=== PATIENT | female | born 1995 | race Caucasian/White ===

== ENCOUNTER 2016-12-25 19:04 | Emergency (ER) | payer OTHER, MEDICAID ==
[2016-12-25] MEDS ORDERED: ONDANSETRON 4 MG TAB.RAPDIS PO ONE (19:09)
--- NOTE | 2016-12-25 19:09 | ER Document Report ---
ED Medical Screen (RME) - General Stated Complaint: BODY ACHES HEADACHE Mode of Arrival: Ambulatory Information source: Patient Notes: Patient presents to the emergency department with body aches and vomiting since Tuesday. Reports vomiting after cough. +FLU vaccine. Reports low grade fever. I have greeted and performed a rapid initial assessment of this patient. A comprehensive ED assessment and evaluation of the patient, analysis of test results and completion of the medical decision making process will be conducted by additional ED providers. TRAVEL OUTSIDE OF THE [place] IN LAST 30 DAYS: No - Related Data Allergies/Adverse Reactions: promethazine HCl [From Phenergan] Allergy (Intermediate, Verified 09/15/15 09:46 ) Facial swelling Past Medical History Psychiatric Medical History: Reports: Hx Attention Deficit Hyperactivity Disorder, Hx Depression Past Surgical History: Reports: Hx Section - Immunizations Hx Diphtheria, Pertussis, Tetanus Vaccination: Yes
[2016-12-25 19:49] LABS: HEMATOCRIT 34.2 % (36.0-47.0); HGB HCT DIFFERENCE -1.2; MEAN CORPUSCULAR HEMOGLOBIN 22.8 pg (27.0-33.4); MEAN CORPUSCULAR VOLUME 71 fl (80-97); RED BLOOD COUNT 4.81 10^6/uL (3.72-5.28); RED CELL DISTRIBUTION WIDTH 18.3 % (11.5-14.0); WHITE BLOOD COUNT 6.2 10^3/uL (4.0-10.5)
[2016-12-25 19:53] LABS: ALANINE AMINOTRANSFERASE 520 U/L (9-52); ALBUMIN 3.7 g/dL (3.5-5.0); ALKALINE PHOSPHATASE 243 U/L (38-126); ANION GAP 8 (5-19); ASPARTATE AMINO TRANSFERASE 343 U/L (14-36); BILIRUBIN,TOTAL 0.7 mg/dL (0.2-1.3); BLOOD UREA NITROGEN 6 mg/dL (7-20); CALCIUM 9.1 mg/dL (8.4-10.2); CARBON DIOXIDE 30 mmol/L (22-30); CHLORIDE 100 mmol/L (98-107); CREATININE RESULT 0.71 mg/dL (0.52-1.25); GLUCOSE 106 mg/dL (75-110); POTASSIUM 3.9 mmol/L (3.6-5.0); SODIUM 138.4 mmol/L (137-145); TOTAL PROTEIN 6.6 g/dL (6.3-8.2)
[2016-12-25 20:02] LABS: BASOPHILS % (MANUAL) 0 % (0-2); EOSINOPHILS % (MANUAL) 2 % (0-6); LYMPHOCYTES % (MANUAL) 55 % (13-45); TOTAL CELLS COUNTED 100
[2016-12-25 20:07] LABS: ANISOCYTOSIS 2+; HYPOCHROMASIA SLIGHT; MICROCYTOSIS 1+; POLYCHROMASIA SLIGHT; TOXIC GRANULATION SLIGHT; TOXIC VACUOLATION PRESENT
[2016-12-25 20:08] LABS: OVALOCYTES 1+; POIKILOCYTOSIS 1+
[2016-12-25 20:38] LABS: APPEARANCE,URINE SLIGHTLY-CLOUDY; BILIRUBIN,URINE NEGATIVE (NEGATIVE); GLUCOSE, URINE NEGATIVE (NEGATIVE); KETONES,URINE NEGATIVE (NEGATIVE); LEUKOCYTE ESTERASE,URINE NEGATIVE (NEGATIVE); NITRITE,URINE NEGATIVE (NEGATIVE); PROTEIN,URINE NEGATIVE (NEGATIVE); URINE SPECIFIC GRAVITY 1.014
[2016-12-25] MEDS ORDERED: KETOROLAC TROMETHAMINE 10 MG TABLET PO ONE (20:54)
[2016-12-25] MEDS ORDERED: KETOROLAC TROMETHAMINE 10 MG TABLET ONE (21:36)
[2016-12-25 22:15] LABS: ALBUMIN 3.9 g/dL (3.5-5.0); BILIRUBIN,TOTAL 0.9 mg/dL (0.2-1.3); TOTAL PROTEIN 6.9 g/dL (6.3-8.2)
--- NOTE | 2016-12-25 22:26 | ER Document Report ---
ED General - General Chief Complaint: Flu Symptoms Stated Complaint: BODY ACHES HEADACHE Mode of Arrival: Ambulatory Information source: Patient Notes: 21-year-old female presents with complaints of generalized body aches nausea headaches. Patient notes symptoms have been ongoing for a week. Patient has had nonproductive cough. Denies any current fevers but notes feeling hot and cold intermittently Patient denies any abdominal pain, denies any Tylenol use, denies any alcohol abuse and any dirty sticks TRAVEL OUTSIDE OF THE [place] IN LAST 30 DAYS: No - HPI Onset: Last week Onset/Duration: Persistent Quality of pain: Achy Severity: Mild Pain Level: 1 Associated symptoms: Fever, Headache, Nausea Exacerbated by: Denies Relieved by: Denies Similar symptoms previously: No Recently seen / treated by doctor: No - Related Data Allergies/Adverse Reactions: promethazine HCl [From Phenergan] Allergy (Intermediate, Verified 12/25/16 19:08 ) Facial swelling Past Medical History - General Information source: Patient - Social History Smoking Status: Never Smoker Cigarette use (# per day): No Chew tobacco use (# tins/day): No Smoking Education Provided: No Frequency of alcohol use: None Drug Abuse: None Family History: Reviewed & Not Pertinent, Other - Mother: [place] Patient has suicidal ideation: No Patient has homicidal ideation: No Renal/ Medical History: Denies: Hx Peritoneal Dialysis Psychiatric Medical History: Reports: Hx Attention Deficit Hyperactivity Disorder, Hx Depression Past Surgical History: Reports: Hx Section - Immunizations Hx Diphtheria, Pertussis, Tetanus Vaccination: Yes Review of Systems - Review of Systems Notes: REVIEW OF SYSTEMS: CONSTITUTIONAL : Admits intermittent fever EENT: Denies eye, ear, throat, or mouth pain or symptoms. Denies nasal or sinus congestion or discharge. Denies throat, tongue, or mouth swelling or difficulty swallowing. CARDIOVASCULAR: Denies chest pain. Denies palpitations or racing or irregular heart beat. Denies ankle edema. RESPIRATORY: Denies cough, cold, or chest congestion. Denies shortness of breath, difficulty breathing, or wheezing. GASTROINTESTINAL: Admits to nausea GENITOURINARY: Denies difficulty urinating, painful urination, burning, frequency, blood in urine, or discharge. FEMALE GENITOURINARY: Denies vaginal bleeding, heavy or abnormal periods, irregular periods. Denies vaginal discharge or odor. MUSCULOSKELETAL: Denies back or neck pain or stiffness. Denies joint pain or swelling. SKIN: Denies rash, lesions or sores. HEMATOLOGIC : Denies easy bruising or bleeding. LYMPHATIC: Denies swollen, enlarged glands. NEUROLOGICAL: Admits to headache PSYCHIATRIC: Denies anxiety or stress. Denies depression, suicidal ideation, or homicidal ideation. ALL OTHER SYSTEMS REVIEWED AND NEGATIVE. Dictation was performed using [employer] voice recognition software PHYSICAL EXAMINATION: GENERAL: Well-appearing, well-nourished and in no acute distress. HEAD: Atraumatic, normocephalic. EYES: Pupils equal round and reactive to light, extraocular movements intact, conjunctiva are normal. ENT: Nares patent, oropharynx clear without exudates. Moist mucous membranes. NECK: Normal range of motion, supple without lymphadenopathy LUNGS: Breath sounds clear to auscultation bilaterally and equal. No wheezes rales or rhonchi. HEART: Regular rate and rhythm without murmurs ABDOMEN: Soft, nontender, nondistended abdomen. No guarding, no rebound. No masses appreciated. Female : deferred Musculoskeletal: Normal range of motion, no pitting or edema. No cyanosis. NEUROLOGICAL: Cranial nerves grossly intact. Normal speech, normal gait. Normal sensory, motor exams PSYCH: Normal mood, normal affect. SKIN: Warm, Dry, normal turgor, no rashes or lesions noted. Physical Exam - Vital signs Vitals: Temp Pulse Resp BP Pulse Ox 99.8 F 118 H 20 123/81 98 12/25/16 19:08 12/25/16 19:08 12/25/16 19:08 12/25/16 19:08 12/25/16 19:08 Course - Re-evaluation Re-evalutation: 12/25/16 22:22 Physical examination noted no significant abnormality, lab work is showing quite elevated liver enzymes, hepatic panel was ordered. Patient will be given GI follow-up and is otherwise stable. Patient's headache is resolved with Toradol she's been instructed not to drink or take, Patient's medication list I reviewed and do not see any specific causes of liver injury ultrasound noted no stones and patient has no abdominal pain After performing a Medical Screening Examination, I estimate there is LOW risk for ACUTE APPENDICITIS, BOWEL OBSTRUCTION, ACUTE CHOLECYSTITIS, PERFORATED DIVERTICULITIS, INCARCERATED HERNIA, PANCREATITIS, PELVIC INFLAMMATORY DISEASE, PERFORATED ULCER, ECTOPIC , or TUBO-OVARIAN ABSCESS, thus I consider the discharge disposition reasonable. Also, there is no evidence or peritonitis , sepsis, or toxicity. The patient and I have discussed the diagnosis and risks , and we agree with discharging home with close follow-up with the understanding that symptoms and presentations can change. We also discussed returning to the Emergency Department immediately if new or worsening symptoms occur. We have discussed the symptoms which are most concerning (e.g., bloody stool, fever, changing or worsening pain, vomiting) that necessitate immediate return. - Vital Signs Vital signs: Temp Pulse Resp BP Pulse Ox 99.8 F 118 H 20 123/81 98 12/25/16 19:08 12/25/16 19:08 12/25/16 19:08 12/25/16 19:08 12/25/16 19:08 - Laboratory Result Diagrams: 12/25/16 19:20 12/25/16 19:20 Laboratory results interpreted by me: 12/25/16 12/25/16 12/25/16 19:20 19:20 20:26 Hgb 11.0 L Hct 34.2 L MCV 71 L MCH 22.8 L RDW 18.3 H Plt Count 132 L Seg Neuts % (Manual) 24 L Lymphocytes % (Manual) 55 H Abs Neuts (Manual) 1.5 L BUN 6 L AST 343 H ALT 520 H Alkaline Phosphatase 243 H Urine Urobilinogen 4.0 H 12/25/16 21:35 Hgb Hct MCV MCH RDW Plt Count Seg Neuts % (Manual) Lymphocytes % (Manual) Abs Neuts (Manual) BUN AST 354 H ALT 546 H Alkaline Phosphatase 254 H Urine Urobilinogen - Diagnostic Test Radiology reviewed: Image reviewed, Reports reviewed Discharge - Discharge Clinical Impression: Elevated liver enzymes Headache Qualifiers: Headache type: unspecified Headache chronicity pattern: acute headache Intractability: not intractable Qualified Code(s): R51 - Headache Condition: Stable Disposition: HOME, SELF-CARE Instructions: Liver Function Abnormality ([facility]) Referrals: FILI RANDHAWA MD [ACTIVE STAFF] - Follow up tomorrow
[2016-12-25 22:56] VITALS: BP 107/66
== END 2016-12-25 22:43 | disposition home or self-care (01) ==
LOC: ER 19:04
DX: R74.8 Abnormal levels of other serum enzymes (principal); R51 Headache; M79.1 Myalgia; R11.0 Nausea
CPT/HCPCS: 99284; 36415; 84703; 85025; 80076; 80053; 81001; 80074; 71020; 76705; S0119; J3490

== ENCOUNTER → 2017-01-06 | Outpatient (CLI) | payer OTHER, MEDICAID ==
[2017-01-06 17:05] LABS: ABSOLUTE EOSINOPHILS # (AUTO) 0.1 10^3/uL (0.0-0.6); ABSOLUTE LYMPHOCYTES (AUTO) 2.6 10^3/uL (0.5-4.7); ABSOLUTE MONOCYTES (AUTO) 0.6 10^3/uL (0.1-1.4); ABSOLUTE NEUT (AUTO) 1.6 10^3/uL (1.7-8.2); BASOPHILS % (AUTO) 0.8 % (0-2); EOSINOPHILS % (AUTO) 1.5 % (0-6); HEMATOCRIT 33.3 % (36.0-47.0); HEMOGLOBIN 10.6 g/dL (12.0-15.5); HGB HCT DIFFERENCE -1.5; LYMPHOCYTES % (AUTO) 53.4 % (13-45); MEAN CORPUSCULAR HEMOGLOBIN 22.3 pg (27.0-33.4); MEAN CORPUSCULAR HGB CONC 31.8 g/dL (32.0-36.0); MEAN CORPUSCULAR VOLUME 70 fl (80-97); RED BLOOD COUNT 4.74 10^6/uL (3.72-5.28); RED CELL DISTRIBUTION WIDTH 18.5 % (11.5-14.0); SEGMENTED NEUTROPHILS % (AUTO) 32.3 % (42-78); WHITE BLOOD COUNT 4.9 10^3/uL (4.0-10.5)
[2017-01-06 17:16] LABS: ALANINE AMINOTRANSFERASE 103 U/L (9-52); ALBUMIN 4.3 g/dL (3.5-5.0); ALKALINE PHOSPHATASE 128 U/L (38-126); ASPARTATE AMINO TRANSFERASE 58 U/L (14-36); BILIRUBIN,DIRECT 0.4 mg/dL (0.0-0.4); TOTAL PROTEIN 7.6 g/dL (6.3-8.2)
[2017-01-08 12:24] LABS: CERULOPLASMIN 47.7 mg/dL (19.0-39.0)
== END ==
LOC: LAB 16:22
PROVIDERS: ATTEND Physician Assistant Surgical
DX: R94.5 Abnormal results of liver function studies (principal); K76.0 Fatty (change of) liver, not elsewhere classified
CPT/HCPCS: 36415; 80076; 82390; 85025; 86038; 86235; 86256

== ENCOUNTER 2017-04-14 05:56 | Emergency (ER) | payer OTHER, MEDICAID ==
[2017-04-14 07:17] LABS: ABSOLUTE LYMPHOCYTES (AUTO) 0.8 10^3/uL (0.5-4.7); ABSOLUTE MONOCYTES (AUTO) 0.6 10^3/uL (0.1-1.4); ABSOLUTE NEUT (AUTO) 7.3 10^3/uL (1.7-8.2); BASOPHILS % (AUTO) 0.4 % (0-2); EOSINOPHILS % (AUTO) 0.3 % (0-6); HEMATOCRIT 35.6 % (36.0-47.0); HEMOGLOBIN 11.5 g/dL (12.0-15.5); HGB HCT DIFFERENCE -1.1; LYMPHOCYTES % (AUTO) 9.7 % (13-45); MEAN CORPUSCULAR HEMOGLOBIN 23.3 pg (27.0-33.4); MEAN CORPUSCULAR HGB CONC 32.2 g/dL (32.0-36.0); MEAN CORPUSCULAR VOLUME 72 fl (80-97); MONOCYTES % (AUTO) 6.3 % (3-13); RED BLOOD COUNT 4.93 10^6/uL (3.72-5.28); RED CELL DISTRIBUTION WIDTH 18.4 % (11.5-14.0); SEGMENTED NEUTROPHILS % (AUTO) 83.3 % (42-78); WHITE BLOOD COUNT 8.7 10^3/uL (4.0-10.5)
[2017-04-14 07:25] LABS: AMORPHOUS SEDIMENT,URINE TRACE /HPF; APPEARANCE,URINE SLIGHTLY-CLOUDY; BILIRUBIN,URINE NEGATIVE (NEGATIVE); GLUCOSE, URINE NEGATIVE (NEGATIVE); KETONES,URINE NEGATIVE (NEGATIVE); LEUKOCYTE ESTERASE,URINE NEGATIVE (NEGATIVE); NITRITE,URINE NEGATIVE (NEGATIVE); PROTEIN,URINE NEGATIVE (NEGATIVE); URINE SPECIFIC GRAVITY 1.018; UROBILINOGEN,URINE NEGATIVE mg/dL (<2.0)
[2017-04-14 07:31] LABS: ALANINE AMINOTRANSFERASE 38 U/L (9-52); ALBUMIN 4.3 g/dL (3.5-5.0); ALKALINE PHOSPHATASE 78 U/L (38-126); ANION GAP 13 (5-19); ASPARTATE AMINO TRANSFERASE 29 U/L (14-36); BILIRUBIN,DIRECT 0.3 mg/dL (0.0-0.4); BILIRUBIN,TOTAL 0.8 mg/dL (0.2-1.3); BLOOD UREA NITROGEN 15 mg/dL (7-20); CALCIUM 9.4 mg/dL (8.4-10.2); CARBON DIOXIDE 27 mmol/L (22-30); CHLORIDE 101 mmol/L (98-107); CREATININE RESULT 0.77 mg/dL (0.52-1.25); GLUCOSE 126 mg/dL (75-110); POTASSIUM 4.3 mmol/L (3.6-5.0); SODIUM 140.5 mmol/L (137-145); TOTAL PROTEIN 7.6 g/dL (6.3-8.2)
[2017-04-14] MEDS ORDERED: DEXAMETHASONE SOD PHOS INJ 10 MG/1 ML VIAL IM ONE (08:13)
[2017-04-14] MEDS ORDERED: KETOROLAC TROMETHAMINE 60 MG/2 ML SDV IM ONE (08:13)
--- NOTE | 2017-04-14 08:20 | ER Document Report ---
ED General - General Chief Complaint: Nausea Stated Complaint: NAUSEA,BODY ACHES Time Seen by Provider: 04/14/17 07:17 Mode of Arrival: Ambulatory Information source: Patient Notes: 21-year-old female history of knee problems bilateral presents with complaints of knee pain after playing softball last night. Is able to ambulate notes nausea body aches. Was told by her previous orthopedic physician that there is no cartilage in her knees TRAVEL OUTSIDE OF THE [place] IN LAST 30 DAYS: No - HPI Onset: Yesterday Onset/Duration: Sudden Quality of pain: Achy Severity: Mild Pain Level: 1 Associated symptoms: Other Exacerbated by: Movement, Walking Relieved by: Denies Similar symptoms previously: Yes Recently seen / treated by doctor: Yes - Related Data Allergies/Adverse Reactions: promethazine HCl [From Phenergan] Allergy (Intermediate, Verified 12/25/16 19:08 ) Facial swelling Past Medical History - Social History Smoking Status: Never Smoker Cigarette use (# per day): No Chew tobacco use (# tins/day): No Smoking Education Provided: No Family History: Reviewed & Not Pertinent, Other - Mother: [place] Patient has suicidal ideation: No Renal/ Medical History: Denies: Hx Peritoneal Dialysis Psychiatric Medical History: Reports: Hx Attention Deficit Hyperactivity Disorder, Hx Depression Past Surgical History: Reports: Hx Section - Immunizations Hx Diphtheria, Pertussis, Tetanus Vaccination: Yes Review of Systems - Review of Systems Notes: REVIEW OF SYSTEMS: CONSTITUTIONAL : Denies fever, chills, or sweats. Denies recent illness. EENT: Denies eye, ear, throat, or mouth pain or symptoms. Denies nasal or sinus congestion or discharge. Denies throat, tongue, or mouth swelling or difficulty swallowing. CARDIOVASCULAR: Denies chest pain. Denies palpitations or racing or irregular heart beat. Denies ankle edema. RESPIRATORY: Denies cough, cold, or chest congestion. Denies shortness of breath, difficulty breathing, or wheezing. GASTROINTESTINAL: Admits to nausea GENITOURINARY: Denies difficulty urinating, painful urination, burning, frequency, blood in urine, or discharge. FEMALE GENITOURINARY: Denies vaginal bleeding, heavy or abnormal periods, irregular periods. Denies vaginal discharge or odor. MUSCULOSKELETAL: Admits to bilateral knee pain SKIN: Denies rash, lesions or sores. HEMATOLOGIC : Denies easy bruising or bleeding. LYMPHATIC: Denies swollen, enlarged glands. NEUROLOGICAL: Denies confusion or altered mental status. Denies passing out or loss of consciousness. Denies dizziness or lightheadedness. Denies headache. Denies weakness or paralysis or loss of use of either side. Denies problems with gait or speech. Denies sensory loss, numbness, or tingling. Denies seizures. PSYCHIATRIC: Denies anxiety or stress. Denies depression, suicidal ideation, or homicidal ideation. ALL OTHER SYSTEMS REVIEWED AND NEGATIVE. PHYSICAL EXAMINATION: GENERAL: Well-appearing, well-nourished and in no acute distress. HEAD: Atraumatic, normocephalic. EYES: Pupils equal round extraocular movements intact, conjunctiva are normal. ENT: Nares patent NECK: Normal range of motion LUNGS: No respiratory distress Musculoskeletal: bilateral knee tenderness, effusion left worse than right NEUROLOGICAL: Normal speech, normal gait. PSYCH: Normal mood, normal affect. SKIN: Warm, Dry, normal turgor, no rashes or lesions noted. Dictation was performed using [employer] voice recognition software Physical Exam - Vital signs Vitals: Temp Pulse Resp BP Pulse Ox 98.3 F 99 20 119/73 99 04/14/17 06:00 04/14/17 06:00 04/14/17 06:00 04/14/17 06:00 04/14/17 06:00 Course - Re-evaluation Re-evalutation: 04/14/17 08:17 Patient will be given Idris wrap, treated with anti-inflammatories and steroids. She will be given orthopedic follow-up as well. Otherwise patient looks well small effusion is noted which does not require to be drained at this time After performing a Medical Screening Examination, I estimate there is LOW risk for INTRACRANIAL HEMORRHAGE, UNSTABLE SPINE FRACTURE, CENTRAL CORD SYNDROME, CAUDA EQUINA, THORACIC AORTIC DISSECTION, PNEUMOTHORAX, PERFORATED BOWEL, RUPTURED ABDOMINAL AORTIC ANEURYSM, ACUTE TENDON RUPTURE, COMPARTMENT SYNDROME, or OPEN FRACTURE, thus I consider the discharge disposition reasonable. Also, there is no evidence or peritonitis, sepsis, or toxicity. I have reevaluated this patient multiple times and no significant life threatening changes are noted. The patient and I have discussed the diagnosis and risks, and we agree with discharging home to follow-up with their primary doctor with the understanding that symptoms and presentations can change. We also discussed returning to the Emergency Department immediately if new or worsening symptoms occur. We have discussed the symptoms which are most concerning (e.g., bloody stool, fever, changing or worsening pain, vomiting) that necessitate immediate return. - Vital Signs Vital signs: Temp Pulse Resp BP Pulse Ox 98.3 F 98 20 119/73 98 04/14/17 06:02 04/14/17 06:02 04/14/17 06:02 04/14/17 06:02 04/14/17 06:02 - Laboratory Result Diagrams: 04/14/17 06:54 04/14/17 06:54 Laboratory results interpreted by me: 04/14/17 04/14/17 06:54 06:54 Hgb 11.5 L Hct 35.6 L MCV 72 L MCH 23.3 L RDW 18.4 H Seg Neutrophils % 83.3 H Lymphocytes % 9.7 L Glucose 126 H Discharge - Discharge Clinical Impression: Bilateral knee pain Qualifiers: Chronicity: acute Qualified Code(s): M25.561 - Pain in right knee; M25.562 - Pain in left knee Condition: Stable Disposition: HOME, SELF-CARE Instructions: Knee Effusion ([facility]) Prescriptions: Naproxen 500 mg PO BID #20 tablet Prednisone 60 mg PO DAILY 5 Days Referrals: VALDO ALANIS MD [ACTIVE STAFF] - Follow up tomorrow
[2017-04-14 08:54] VITALS: BP 110/61
== END 2017-04-14 08:51 | disposition home or self-care (01) ==
LOC: ER 05:56
DX: M25.561 Pain in right knee (principal); M25.562 Pain in left knee; M25.462 Effusion, left knee; M25.461 Effusion, right knee; R11.0 Nausea; Z88.8 Allergy status to other drugs, medicaments and biological substances
CPT/HCPCS: 99283; 96372; 36415; 84703; 85025; 80053; 81001; J1885; J1100

== ENCOUNTER 2017-06-09 23:47 | Emergency (ER) | payer OTHER, MEDICAID ==
[2017-06-09 23:55] VITALS: BP 121/83
[2017-06-10] MEDS ORDERED: IBUPROFEN 600 MG TABLET PO ONE (00:41)
[2017-06-10] MEDS ORDERED: BUTALB/ACETAMINOPHEN/CAFFEINE 1 TAB EACH PO ONE (00:41)
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
== END 2017-06-10 01:30 | disposition home or self-care (01) ==
LOC: ER 23:47
DX: R51 Headache (principal); V87.7XXA Person injured in collision between other specified motor vehicles (traffic), initial encounter
CPT/HCPCS: 99283; J3490

== ENCOUNTER 2017-08-03 02:06 | Emergency (ER) | payer MEDICAID, OTHER ==
[2017-08-03] MEDS ORDERED: ASPIRIN 81 MG TABLET, CHEWABLE PO ONE (02:13)
--- NOTE | 2017-08-03 02:50 | RADIOLOGY REPORT (SQ) ---
EXAM DESCRIPTION: CHEST SINGLE VIEW COMPLETED DATE/TIME: 08/03/2017 2:40 am REASON FOR STUDY: Chest pain. COMPARISON: Chest x-ray 12/25/2016. EXAM PARAMETERS: NUMBER OF VIEWS: One view. TECHNIQUE: Single frontal radiographic view of the chest acquired. RADIATION DOSE: NA LIMITATIONS: None. FINDINGS: LUNGS AND PLEURA: No consolidation, pneumothorax or pleural effusion. MEDIASTINUM AND HILAR STRUCTURES: No masses. Contour normal. HEART AND VASCULAR STRUCTURES: Heart normal in size. Normal vasculature. BONES: No acute findings. HARDWARE: None in the chest. IMPRESSION: No acute radiographic finding in the chest. TECHNICAL DOCUMENTATION: JOB ID: [id number]
--- NOTE | 2017-08-03 02:59 | ER Document Report ---
ED Cardiac - General Chief Complaint: Chest Pain Stated Complaint: CHEST PAIN Time Seen by Provider: 08/03/17 02:39 Mode of Arrival: Ambulatory Information source: Patient TRAVEL OUTSIDE OF THE U.[place]. IN LAST 30 DAYS: No - HPI Patient complains to provider of: Chest tightness Use of: denies: Alcohol, Amphetamines, Bath salts, Caffeine, Cocaine, Decongestants, Other Was the onset of pain: Gradual - build up over 2-3 hours When did pain begin: around midnight Is the pain a: New problem Chest pain location: Other - left sternal area Quality of pain: Sharp - occ, Tightness Chest pain radiation location: denies: Left jaw, Left arm, Left shoulder, Right jaw, Right arm, Right shoulder, Back, Neck, None Severity now: Mild Severity at worst: Moderate Pain level currently: 2 Chest pain precipitating factors: none Cardiac risk factors: denies: None, Diabetes, Hypertension, Smoker, + Family history, Dyslipidemia, Hx CHF, Hx GA Positive cardiac history: No Associated symptoms: denies: None, Abdominal pain, Anxiety, Back pain, Cool extremities, Diaphoresis, Dizziness, Edema, Fatigue, Fever/chills, Headache, Heartburn, Hypotension, Jaw pain, Lightheaded, Nausea/vomiting, Neck pain, Palpitations, Rash, Shortness of breath, Swelling/lump in chest, Syncope, Weakness, Other Exacerbated by: Deep breaths. denies: Denies, Sitting, Standing, Activity, Emotional stress, Coughing, Torso movement, Lying flat, Other Relieved by: denies: Nothing, Rest, Oxygen, NTG, NSAIDs, Leaning forward, Antacids, Other Similar symptoms previously: No Recently seen / treated by doctor: No Notes: Patient is a 21-year-old female with no significant cardiac history presents the ED with substernal chest pain for the last 3 hours. Patient states that she feels the pain primarily with a deep breath. She is able to ambulate without any difficulties or dyspnea on exertion. She has not had any shortness of breath. Denies any recent illness. Patient states that she was eating and drinking without any difficulties. She is still urinating and having normal bowel movements. Patient has a history of anxiety, depression, and ADHD which he takes medications for. Patient states that this feeling is not like her typical anxiety. Patient denies any smoking, IV drug use, long distance travel , hormone use, calf pain, trauma, recent surgeries, or prolonged immobilization. Denies any history of DM, CAD, DVT/PE. Pt also c/o development of b/l low back pain. No known injury. No injection, surgeries. Denies any headache, fever, head injury, neck pain, URI, sore throat, palpitations, syncope, cough, shortness of breath, wheeze, dyspnea, abdominal pain, nausea/vomiting/diarrhea, urinary retention, dysuria, hematuria, vaginal discharge/bleeding/odor, loss of control of bowel or bladder, numbness/tingling , saddle anesthesia, muscle paralysis/weakness, or rash. - Related Data Allergies/Adverse Reactions: promethazine HCl [From Phenergan] Allergy (Intermediate, Verified 12/25/16 19:08 ) Facial swelling Past Medical History - Social History Smoking Status: Never Smoker Family History: Reviewed & Not Pertinent, Other - Mother: [place] Patient has suicidal ideation: No Patient has homicidal ideation: No Renal/ Medical History: Denies: Hx Peritoneal Dialysis Psychiatric Medical History: Reports: Hx Attention Deficit Hyperactivity Disorder, Hx Depression Past Surgical History: Reports: Hx Section - Immunizations Hx Diphtheria, Pertussis, Tetanus Vaccination: Yes Review of Systems - Review of Systems Notes: REVIEW OF SYSTEMS: CONSTITUTIONAL : Denies fever, chills, or sweats. Denies recent illness. EENT: Denies eye, ear, throat, or mouth pain or symptoms. Denies nasal or sinus congestion or discharge. Denies throat, tongue, or mouth swelling or difficulty swallowing. CARDIOVASCULAR: see hpi. Denies palpitations or racing or irregular heart beat. Denies ankle edema. RESPIRATORY: Denies cough, cold, or chest congestion. Denies shortness of breath, difficulty breathing, or wheezing. GASTROINTESTINAL: Denies abdominal pain or distention. Denies nausea, vomiting , or diarrhea. Denies blood in vomitus, stools, or per rectum. Denies black, tarry stools. Denies constipation. GENITOURINARY: Denies difficulty urinating, painful urination, burning, frequency, blood in urine, or discharge. MUSCULOSKELETAL: see hpi SKIN: Denies rash, lesions or sores. NEUROLOGICAL: Denies confusion or altered mental status. Denies passing out or loss of consciousness. Denies dizziness or lightheadedness. Denies headache. Denies weakness or paralysis or loss of use of either side. Denies problems with gait or speech. Denies sensory loss, numbness, or tingling. Denies seizures. PSYCHIATRIC: Denies current anxiety or stress. Denies depression, suicidal ideation, or homicidal ideation. ALL OTHER SYSTEMS REVIEWED AND NEGATIVE. Dictation was performed using [employer] voice recognition software Physical Exam - Vital signs Vitals: Temp Pulse Resp BP Pulse Ox 97.7 F 70 18 121/77 100 08/03/17 02:11 08/03/17 02:11 08/03/17 02:11 08/03/17 02:11 08/03/17 02:11 Notes: PHYSICAL EXAMINATION: GENERAL: Well-appearing, well-nourished and in no acute distress. A&Ox4 HEAD: Atraumatic, normocephalic. EYES: Pupils equal round and reactive to light, extraocular movements intact, sclera anicteric, conjunctiva are normal. ENT: Nares patent and without discharge. oropharynx clear without exudates. No tonsilar hypertrophy or erythema. Moist mucous membranes. No sinus tenderness. NECK: Normal range of motion, supple without lymphadenopathy. No rigidity/ meningismus. Chest: no erythema, ecchymosis, flail chest, deformity. equal rise/fall. + tenderness to the left costochondral area around rib 3. (tenderness elicited corresponds to pain and symptoms pt is having). LUNGS: Breath sounds clear to auscultation bilaterally and equal. No wheezes rales or rhonchi. HEART: Regular rate and rhythm without murmurs, rubs, gallops. ABDOMEN: Soft, nontender, nondistended abdomen. No guarding, no rebound. No masses appreciated. Normal bowel sounds present. No CVA tenderness bilaterally. Musculoskeletal: LE's b/l: FROM to passive/active. Strength 5+/5. Back: FROM to passive/active. Strength 5+/5. SLR neg b/l. No step-offs, deformity, erythema, or signs of trauma. + mild tenderness to the L-paraspinal mm/soft tissue. Extremities: No cyanosis, clubbing, or edema b/l. Peripheral pulses 2+. Capillary refill less than 3 seconds. NEUROLOGICAL: Cranial nerves grossly intact. Normal speech, normal gait. Normal sensory, motor exams PSYCH: Normal mood, normal affect. SKIN: Warm, Dry, normal turgor, no rashes or lesions noted. Course - Re-evaluation Re-evalutation: 08/03/17 04:42 Pt continuing to do well with no acute changes in her symptoms. Work up currently unremarkable. 08/03/17 05:[address] Duran who is in agreemend with work up and d/c: Pt is an afebrile, well-hydrated, 21yo female who presents to the ED with chest pain, suspect costochondritis based on H&P and LBP, suspect possible strain. Vitals are stable. PE unremarkable for any focal neurological deficits. Pt has chest wall tenderness that correlates to pain described. CBC, CMP unremarkable. Cardiac enzymes/EKG's x2 unremarkable. UA and negative. Heart Score of 0. PERC score of 0. Low suspicion for any ACS, PE, pneumothoraox, pericarditis, dissection, meningitis, fracture, expanding/ ruptured AAA, cauda equina syndrome, epidural mass lesion/abscess, herniated disc causing severe spinal stenosis, or other systemic infection at this time. Patient is aware that her condition can change from initial presentation and that she needs monitor symptoms closely for any acute changes. Warm pack given today for her back. Conservative measures for sx's. Recheck with PCM in 3-5 days. Return to the ED with any worsening/concerning sx's otherwise as reviewed in discharge. Pt is in agreement. - Vital Signs Vital signs: Temp Pulse Resp BP Pulse Ox 97.7 F 70 22 H 100/79 99 08/03/17 02:11 08/03/17 02:11 08/03/17 04:46 08/03/17 04:46 08/03/17 04:46 - Laboratory Result Diagrams: 08/03/17 02:52 08/03/17 02:52 Laboratory results interpreted by me: 08/03/17 02:52 Hgb 10.6 L Hct 32.6 L MCV 67 L MCH 21.8 L RDW 17.2 H Discharge - Discharge Clinical Impression: Chest wall pain Low back strain Qualifiers: Encounter type: initial encounter Qualified Code(s): S39.012A - Strain of muscle, fascia and tendon of lower back, initial encounter Condition: Stable Disposition: HOME, SELF-CARE Instructions: Chest Wall Pain ([facility]), Costochondritis ([facility]), Family Physicians / Practices, Low Back Pain ([facility]), Muscle Strain ([facility]), Stretching Exercises for the Back ([facility]) Additional Instructions: Monitor for any acute changes in your symptoms Rest, Ice Tylenol/ibuprofen as needed Light stretches daily Strength exercises as able Moist heat and massage may help F/u with your PCP in 3-5 days for a recheck Consider consult(s) with Orthopedics/physical therapy for ongoing/worsening symptoms Return to the ED with any worsening symptoms and/or development of fever, headache, chest pain, palpitations, syncope, shortness of breath, trouble breathing, abdominal pain, n/v/d, muscle weakness/paralysis, numbness/tingling, swelling, redness, or other worsening symptoms that are concerning to you. Referrals: [facility] [Provider Group] - Follow up as needed LUIS ALFREDO LONDON MD [ACTIVE STAFF] - Follow up as needed
[2017-08-03 03:10] LABS: ABSOLUTE BASOPHILS # (AUTO) 0.1 10^3/uL (0.0-0.2); ABSOLUTE EOSINOPHILS # (AUTO) 0.1 10^3/uL (0.0-0.6); ABSOLUTE LYMPHOCYTES (AUTO) 2.6 10^3/uL (0.5-4.7); ABSOLUTE MONOCYTES (AUTO) 0.6 10^3/uL (0.1-1.4); ABSOLUTE NEUT (AUTO) 3.9 10^3/uL (1.7-8.2); BASOPHILS % (AUTO) 0.8 % (0-2); EOSINOPHILS % (AUTO) 1.7 % (0-6); HEMATOCRIT 32.6 % (36.0-47.0); HEMOGLOBIN 10.6 g/dL (12.0-15.5); HGB HCT DIFFERENCE -0.8; LYMPHOCYTES % (AUTO) 35.8 % (13-45); MEAN CORPUSCULAR HEMOGLOBIN 21.8 pg (27.0-33.4); MEAN CORPUSCULAR HGB CONC 32.6 g/dL (32.0-36.0); MEAN CORPUSCULAR VOLUME 67 fl (80-97); MONOCYTES % (AUTO) 8.6 % (3-13); RED BLOOD COUNT 4.87 10^6/uL (3.72-5.28); RED CELL DISTRIBUTION WIDTH 17.2 % (11.5-14.0); SEGMENTED NEUTROPHILS % (AUTO) 53.1 % (42-78); WHITE BLOOD COUNT 7.3 10^3/uL (4.0-10.5)
[2017-08-03 03:24] LABS: ALANINE AMINOTRANSFERASE 35 U/L (9-52); ALBUMIN 4.5 g/dL (3.5-5.0); ALKALINE PHOSPHATASE 63 U/L (38-126); ANION GAP 13 (5-19); ASPARTATE AMINO TRANSFERASE 22 U/L (14-36); BILIRUBIN,DIRECT 0.4 mg/dL (0.0-0.4); BILIRUBIN,TOTAL 0.5 mg/dL (0.2-1.3); BLOOD UREA NITROGEN 12 mg/dL (7-20); CALCIUM 9.8 mg/dL (8.4-10.2); CARBON DIOXIDE 30 mmol/L (22-30); CHLORIDE 101 mmol/L (98-107); CREATINE KINASE 83 U/L (30-135); CREATININE RESULT 0.74 mg/dL (0.52-1.25); GLUCOSE 89 mg/dL (75-110); POTASSIUM 3.9 mmol/L (3.6-5.0); SODIUM 143.5 mmol/L (137-145); TOTAL PROTEIN 7.3 g/dL (6.3-8.2)
[2017-08-03 03:36] LABS: CREATINE KINASE MB 0.85 ng/mL (<4.55)
[2017-08-03 03:37] LABS: TROPONIN I < 0.012 ng/mL
[2017-08-03 03:39] LABS: APPEARANCE,URINE SLIGHTLY-CLOUDY; BILIRUBIN,URINE NEGATIVE (NEGATIVE); GLUCOSE, URINE NEGATIVE (NEGATIVE); KETONES,URINE NEGATIVE (NEGATIVE); LEUKOCYTE ESTERASE,URINE NEGATIVE (NEGATIVE); NITRITE,URINE NEGATIVE (NEGATIVE); PROTEIN,URINE NEGATIVE (NEGATIVE); URINE SPECIFIC GRAVITY 1.024; UROBILINOGEN,URINE NEGATIVE mg/dL (<2.0)
[2017-08-03 05:40] VITALS: BP 105/64
--- NOTE | 2017-08-03 17:38 | EKG REPORT ---
SEVERITY:- NORMAL ECG - SINUS RHYTHM : Confirmed by: Becky Ramsey MD 03-Aug-2017 17:38:14
--- NOTE | 2017-08-03 17:38 | EKG REPORT ---
SEVERITY:- ABNORMAL ECG - SINUS RHYTHM CONSIDER LEFT VENTRICULAR HYPERTROPHY : Confirmed by: Becky Ramsey MD 03-Aug-2017 17:38:11
== END 2017-08-03 05:40 | disposition home or self-care (01) ==
LOC: ER 02:06
DX: R07.89 Other chest pain (principal); R07.1 Chest pain on breathing; S39.012A Strain of muscle, fascia and tendon of lower back, initial encounter; X58.XXXA Exposure to other specified factors, initial encounter; F41.9 Anxiety disorder, unspecified; F32.9 Major depressive disorder, single episode, unspecified; F90.9 Attention-deficit hyperactivity disorder, unspecified type; Z79.899 Other long term (current) drug therapy; Z82.49 Family history of ischemic heart disease and other diseases of the circulatory system
CPT/HCPCS: 36415; 71010; 80053; 81001; 81025; 82550; 82553; 84484; 85025; 93005; 93010; 99285

== ENCOUNTER 2017-11-13 19:57 | Emergency (ER) | payer MEDICAID ==
--- NOTE | 2017-11-13 20:15 | ER Document Report ---
ED Medical Screen (RME) - General Chief Complaint: Psych Problem Stated Complaint: PSYCH EVAL Time Seen by Provider: 11/13/17 20:14 Mode of Arrival: Ambulatory Information source: Patient Notes: 22-year-old female history of depression and was on Lexapro Abilify and BuSpar presents with complaints of worsening depression. Patient notes she has been taking medications as prescribed, has been drinking the last 3 nights due to her symptoms I have greeted and performed a rapid initial assessment of this patient. A comprehensive ED assessment and evaluation of the patient, analysis of test results and completion of the medical decision making process will be conducted by additional ED providers. PHYSICAL EXAMINATION: GENERAL: Well-appearing, well-nourished and in no acute distress. HEAD: Atraumatic, normocephalic. EYES: Pupils equal round extraocular movements intact, conjunctiva are normal. ENT: Nares patent NECK: Normal range of motion LUNGS: No respiratory distress Musculoskeletal: Normal range of motion NEUROLOGICAL: Normal speech, normal gait. PSYCH: mildly flat affect SKIN: Warm, Dry, normal turgor, no rashes or lesions noted. TRAVEL OUTSIDE OF THE [place] IN LAST 30 DAYS: No - Related Data Allergies/Adverse Reactions: promethazine HCl [From Phenergan] Allergy (Intermediate, Verified 11/13/17 19:58 ) Facial swelling Past Medical History Renal/ Medical History: Denies: Hx Peritoneal Dialysis Psychiatric Medical History: Reports: Hx Attention Deficit Hyperactivity Disorder, Hx Depression Past Surgical History: Reports: Hx Section - Immunizations Hx Diphtheria, Pertussis, Tetanus Vaccination: Yes Physical Exam - Vital signs Vitals: Temp Pulse Resp BP Pulse Ox 98.4 F 90 18 136/82 H 96 11/13/17 20:05 11/13/17 20:05 11/13/17 20:05 11/13/17 20:05 11/13/17 20:05 Course - Vital Signs Vital signs: Temp Pulse Resp BP Pulse Ox 98.4 F 90 18 136/82 H 96 11/13/17 20:05 11/13/17 20:05 11/13/17 20:05 11/13/17 20:05 11/13/17 20:05
[2017-11-13 21:04] LABS: APPEARANCE,URINE SLIGHTLY-CLOUDY; BILIRUBIN,URINE NEGATIVE (NEGATIVE); COLOR,URINE YELLOW; GLUCOSE, URINE NEGATIVE (NEGATIVE); KETONES,URINE NEGATIVE (NEGATIVE); LEUKOCYTE ESTERASE,URINE NEGATIVE (NEGATIVE); NITRITE,URINE NEGATIVE (NEGATIVE); PROTEIN,URINE 30 mg/dL (NEGATIVE); URINE SPECIFIC GRAVITY 1.028
[2017-11-13 21:10] LABS: ABSOLUTE EOSINOPHILS # (AUTO) 0.1 10^3/uL (0.0-0.6); ABSOLUTE LYMPHOCYTES (AUTO) 2.4 10^3/uL (0.5-4.7); ABSOLUTE MONOCYTES (AUTO) 0.6 10^3/uL (0.1-1.4); ABSOLUTE NEUT (AUTO) 3.4 10^3/uL (1.7-8.2); BASOPHILS % (AUTO) 0.7 % (0-2); EOSINOPHILS % (AUTO) 1.4 % (0-6); HEMATOCRIT 34.7 % (36.0-47.0); HEMOGLOBIN 11.2 g/dL (12.0-15.5); LYMPHOCYTES % (AUTO) 37.3 % (13-45); MEAN CORPUSCULAR HEMOGLOBIN 22.6 pg (27.0-33.4); MEAN CORPUSCULAR HGB CONC 32.3 g/dL (32.0-36.0); MEAN CORPUSCULAR VOLUME 70 fl (80-97); MONOCYTES % (AUTO) 8.7 % (3-13); PLATELET COUNT 263 10^3/uL (150-450); RED BLOOD COUNT 4.95 10^6/uL (3.72-5.28); SEGMENTED NEUTROPHILS % (AUTO) 51.9 % (42-78); TOTAL CELLS COUNTED % (AUTO) 100 %; WHITE BLOOD COUNT 6.5 10^3/uL (4.0-10.5)
--- NOTE | 2017-11-13 21:10 | ER Document Report ---
ED Psych Disorder / Suicide - General Chief Complaint: Psych Problem Stated Complaint: PSYCH EVAL Time Seen by Provider: 11/13/17 20:14 Mode of Arrival: Ambulatory Information source: Patient Notes: Patient presents reporting a history of heavy alcohol use over the past 3 days. Patient is seeking help with detox. Patient does have a history of depression , patient states she missed 3 days of doses of her antidepressant as she was not at home but took her medicine today. Patient states she feels that her depression symptoms seem to be worse since yesterday. Patient does report recent argument with her friend, difficulty focusing, recent job loss and recently having her electricity shut off due to his not being able to pay. Patient denies any suicidal or homicidal ideation. Patient is a patient of [facility]. TRAVEL OUTSIDE OF THE [place] IN LAST 30 DAYS: No - HPI Patient complains to provider of: No: Homicidal plan, Homicidal attempt, Suicidal ideation, Suicidal plan Onset: Other - 3 days Quality of pain: No pain Suicide Risk Factors: Depressed, Substance abuse Situational problems related to: Lost job Overdose of: Alcohol Normal mood: Yes Associated symptoms: Normal affect, Normal mood Similar symptoms previously: No Recently seen / treated by doctor: No - Related Data Allergies/Adverse Reactions: promethazine HCl [From Phenergan] Allergy (Intermediate, Verified 11/13/17 19:58 ) Facial swelling Past Medical History - General Information source: Patient - Social History Smoking Status: Current Every Day Smoker Chew tobacco use (# tins/day): No Frequency of alcohol use: Heavy Drug Abuse: None Occupation: None Lives with: Family Family History: Reviewed & Not Pertinent, Other - Mother: [place] Patient has suicidal ideation: No Patient has homicidal ideation: No Renal/ Medical History: Denies: Hx Peritoneal Dialysis Psychiatric Medical History: Reports: Hx Attention Deficit Hyperactivity Disorder, Hx Depression Past Surgical History: Reports: Hx Section - Immunizations Hx Diphtheria, Pertussis, Tetanus Vaccination: Yes Review of Systems - Review of Systems Constitutional: No symptoms reported. denies: Recent illness EENT: No symptoms reported Cardiovascular: No symptoms reported. denies: Chest pain Respiratory: No symptoms reported. denies: Cough, Short of breath Gastrointestinal: No symptoms reported. denies: Abdominal pain, Nausea, Vomiting Genitourinary: No symptoms reported Female Genitourinary: No symptoms reported Musculoskeletal: No symptoms reported Skin: No symptoms reported Hematologic/Lymphatic: No symptoms reported Neurological/Psychological: Depression, Other - Alcohol use Physical Exam - Vital signs Vitals: Temp Pulse Resp BP Pulse Ox 98.4 F 90 18 136/82 H 96 11/13/17 20:05 11/13/17 20:05 11/13/17 20:05 11/13/17 20:05 11/13/17 20:05 - General General appearance: Appears well, Alert In distress: None - HEENT Head: Normocephalic, Atraumatic Eyes: Normal Conjunctiva: Normal Nasal: Normal Mouth/Lips: Normal Mucous membranes: Normal Neck: Normal, Supple. No: Lymphadenopathy - Respiratory Respiratory status: No respiratory distress Chest status: Nontender Breath sounds: Normal. No: Rales, Rhonchi, Stridor, Wheezing Chest palpation: Normal - Cardiovascular Rhythm: Regular Heart sounds: S1 appreciated, S2 appreciated Murmur: No - Abdominal Inspection: Obese Distension: No distension Bowel sounds: Normal Tenderness: Nontender - Back Back: Normal, Nontender - Extremities General upper extremity: Normal inspection, Normal strength General lower extremity: Normal inspection, Normal strength - Neurological Neuro grossly intact: Yes Cognition: Normal [place] Coma Scale Eye Opening: Spontaneous [place] Coma Scale Verbal: Oriented [place] Coma Scale Motor: Obeys Commands [place] Coma Scale Total: 15 - Psychological Associated symptoms: Normal affect, Normal mood - Skin Skin Temperature: Warm Skin Moisture: Dry Skin Color: Normal Course - Re-evaluation Re-evalutation: 11/13/17 21:09 Consulted with Clarence with mental health team to see if she was precision lens generator her if Dr. Prado was precision lens generator for teleconference seen. Message left on Dr. Prado's voicemail for consultation. 11/13/17 22:10 Clarence Wilson interviewed patient via tele-conferencing and consultated with Dr. Prado. Mental health team agrees that patient does not meet any IVC criteria as she is not presently homicidal or suicidal at this time. Patient does not appear to be a danger to herself. Patient is seeking treatment for alcohol abuse and does have close follow-up with her mental health provider and has otherwise been compliant with taking her antidepressants. Patient has been on stable dosages of her medications for over a year. Patient's a negative blood alcohol test tonight. Clarence does recommend giving patient resource information including katty to help get her electricity turned back on as well as provide her with a a resource information. Patient also encouraged to recheck with her mental health provider tomorrow regarding her alcohol abuse. 11/13/17 22:19 Patient provided with handout with a list of AA meeting times as well as contact information. Patient also given resource information for [facility] [place]. Patient verbalized understanding of discharge instructions and agrees with plan of care. - Vital Signs Vital signs: Temp Pulse Resp BP Pulse Ox 98.7 F 74 16 134/74 H 100 11/13/17 22:45 11/13/17 22:45 11/13/17 22:45 11/13/17 22:45 11/13/17 22:45 - Laboratory Result Diagrams: 11/13/17 21:00 11/13/17 21:00 Laboratory results interpreted by me: 11/13/17 11/13/17 11/13/17 20:50 21:00 21:00 Hgb 11.2 L Hct 34.7 L MCV 70 L MCH 22.6 L RDW 17.0 H Potassium 3.4 L Carbon Dioxide 32 H Urine Protein 30 H Urine Urobilinogen 4.0 H Salicylates < 1.0 L Acetaminophen < 10 L 11/13/17 22:12 Labs- Entire Visit 11/13/17 11/13/17 11/13/17 20:50 20:50 21:00 WBC 6.5 RBC 4.95 Hgb 11.2 L Hct 34.7 L MCV 70 L MCH 22.6 L MCHC 32.3 RDW 17.0 H Plt Count 263 Seg Neutrophils % 51.9 Lymphocytes % 37.3 Monocytes % 8.7 Eosinophils % 1.4 Basophils % 0.7 Absolute Neutrophils 3.4 Absolute Lymphocytes 2.4 Absolute Monocytes 0.6 Absolute Eosinophils 0.1 Absolute Basophils 0.0 Sodium Potassium Chloride Carbon Dioxide Anion Gap BUN Creatinine Est GFR ( Amer) Est GFR (Non-Af Amer) Glucose Calcium Total Bilirubin Direct Bilirubin Neonat Total Bilirubin Neonat Direct Bilirubin Neonat Indirect Bili AST ALT Alkaline Phosphatase Total Protein Albumin Serum HCG, Qual Urine Color YELLOW Urine Appearance SLIGHTLY-CLOUDY Urine pH 5.0 Ur Specific [place] 1.028 Urine Protein 30 H Urine Glucose (UA) NEGATIVE Urine Ketones NEGATIVE Urine Blood NEGATIVE Urine Nitrite NEGATIVE Urine Bilirubin NEGATIVE Urine Urobilinogen 4.0 H Ur Leukocyte Esterase NEGATIVE Urine WBC (Auto) 3 Urine RBC (Auto) 2 Squamous Epi Cells Auto 10 Urine Mucus (Auto) MOD Urine Ascorbic Acid NEGATIVE Salicylates Urine Opiates Screen NEGATIVE Urine Methadone Screen NEGATIVE Acetaminophen Ur Barbiturates Screen NEGATIVE Ur Phencyclidine Scrn NEGATIVE Ur Amphetamines Screen NEGATIVE U Benzodiazepines Scrn NEGATIVE Urine Cocaine Screen NEGATIVE U Marijuana (THC) Screen NEGATIVE Serum Alcohol 11/13/17 11/13/17 21:00 21:00 WBC RBC Hgb Hct MCV MCH MCHC RDW Plt Count Seg Neutrophils % Lymphocytes % Monocytes % Eosinophils % Basophils % Absolute Neutrophils Absolute Lymphocytes Absolute Monocytes Absolute Eosinophils Absolute Basophils Sodium 141.3 Potassium 3.4 L Chloride 102 Carbon Dioxide 32 H Anion Gap 7 BUN 15 Creatinine 0.95 Est GFR ( Amer) > 60 Est GFR (Non-Af Amer) > 60 Glucose 87 Calcium 9.2 Total Bilirubin 0.5 Direct Bilirubin 0.2 Neonat Total Bilirubin Not Reportable Neonat Direct Bilirubin Not Reportable Neonat Indirect Bili Not Reportable AST 24 ALT 25 Alkaline Phosphatase 71 Total Protein 6.5 Albumin 4.0 Serum HCG, Qual NEGATIVE Urine Color Urine Appearance Urine pH Ur Specific [place] Urine Protein Urine Glucose (UA) Urine Ketones Urine Blood Urine Nitrite Urine Bilirubin Urine Urobilinogen Ur Leukocyte Esterase Urine WBC (Auto) Urine RBC (Auto) Squamous Epi Cells Auto Urine Mucus (Auto) Urine Ascorbic Acid Salicylates < 1.0 L Urine Opiates Screen Urine Methadone Screen Acetaminophen < 10 L Ur Barbiturates Screen Ur Phencyclidine Scrn Ur Amphetamines Screen U Benzodiazepines Scrn Urine Cocaine Screen U Marijuana (THC) Screen Serum Alcohol < 10 Discharge - Discharge Clinical Impression: Hypokalemia, Alcohol abuse, History of depression Condition: Stable Disposition: HOME, SELF-CARE Instructions: Depression ([facility]), Hypokalemia ([facility]) Additional Instructions: Return immediately for any new or worsening symptoms Followup with your primary care provider, call tomorrow to make a followup appointment Avoid use of alcohol Follow-up with [facility] for recheck, call their office on Tuesday for an appointment. They can help you both with the depression symptoms as well as the heavy alcohol use Follow-[facility] with the [facility] as they have programs that can help you with getting your electricity turned on [facility] [place] [address] [facility] [phone] Follow-up with [facility], call [phone], see handout for meeting times Your potassium today was mildly decreased. Increase foods rich in potassium in your diet. Your primary doctor can recheck your blood test in the next 2-3 days. Referrals: [facility] [Provider Group] - Follow up as needed [facility] [Provider Group] - Follow up tomorrow
[2017-11-13 21:19] LABS: URINE AMPHETAMINES SCREEN NEGATIVE; URINE BARBITURATES SCREEN NEGATIVE; URINE BENZODIAZEPINES SCREEN NEGATIVE; URINE COCAINE SCREEN NEGATIVE; URINE MARIJUANA (THC) SCREEN NEGATIVE; URINE METHADONE SCREEN NEGATIVE; URINE PHENCYCLIDINE SCREEN NEGATIVE
[2017-11-13 21:26] LABS: ALANINE AMINOTRANSFERASE 25 U/L (9-52); ALKALINE PHOSPHATASE 71 U/L (38-126); ANION GAP 7 (5-19); ASPARTATE AMINO TRANSFERASE 24 U/L (14-36); BILIRUBIN,DIRECT 0.2 mg/dL (0.0-0.4); BILIRUBIN,TOTAL 0.5 mg/dL (0.2-1.3); BLOOD UREA NITROGEN 15 mg/dL (7-20); CALCIUM 9.2 mg/dL (8.4-10.2); CARBON DIOXIDE 32 mmol/L (22-30); CHLORIDE 102 mmol/L (98-107); GLUCOSE 87 mg/dL (75-110); POTASSIUM 3.4 mmol/L (3.6-5.0); SODIUM 141.3 mmol/L (137-145); TOTAL PROTEIN 6.5 g/dL (6.3-8.2)
[2017-11-13 21:27] LABS: ACETAMINOPHEN < 10 ug/mL (10-30); ALCOHOL < 10 mg/dL (NONE DETECTED); SALICYLATE < 1.0 mg/dL (2.0-20.0)
[2017-11-13] MEDS ORDERED: POTASSIUM CHLORIDE 10 MEQ TABLET.SA PO ONE (21:51)
--- NOTE | 2017-11-13 22:26 | PSYCHOLOGICAL NOTE ---
Psych Note - Psych Note Psych Note: Reason for consult: increased depression and alcohol abuse Consent Permissions: none given Pt with c/o depression. States she has been taking her antidepressant medications as written and also drinking alcohol the last three nights. Pt states that she has thought about suicide but is "too lazy to do it". Pt unsure of any specific plans for suicide. Patient disclosed she wants assistance with her drinking. She states that she has had an increase in drinking over the last few months. She drinks every night until she is drunk. She reports an increase in depression; "I cry for no reason." Patient disclosed increased in psychosocial stressors which include losing her job, her electricity was turned off, and a fight with a friend. She states that she took her medication (BuSpar, Adderall, Lexapro, and Abilify) yesterday and today however previous to yesterday she had missed 3 days. She reports that she normally takes her medication as prescribed however she was not at home so could not take her medication. She reports that she has a diagnosis of depression, ADHD, and PTSD. Patient's outpatient provider [facility]. She reports she did suicide by "cutting m July wrist"; she denies needing medical care or receiving psychiatric inpatient treatment after. Patient denies current suicidal ideation, and homicidal ideation. Patient denies any previous inpatient psychiatric treatments. Patient is alert and orientated to person, place, time and circumstance. Mood is euthymic with congruent affect. Patient denies current suicidal and homicidal ideation. Delusions are absent behaviors congruent to an intact reality based presentation i.e. organized, linear, rational thinking. Eye contact was well-maintained. Conversational speech was within normal rate, tone and prosody. Intellectual abilities appear to be within the average range. Attention and concentration are good. Insight, judgment, impulse control are good. 311 (F32.9) unspecified depressive disorder per history provided by patient Posttraumatic stress disorder per history provided by patient Alcohol abuse; unspecified per history provided by patient Attention deficit hyperactivity disorder per history provided by patient Impression\\plan: Patient is considered psychiatrically clear. Patient does not meet IVC criteria per [place] GS 122C. Patient denies suicidal and homicidal ideation. Delusions are absent behaviors congruent with intact reality based presentation i.e. organized, linear, rational thinking. Patient discloses wanting assistance with substance abuse (alcohol). She discloses that she has had an increase in her depression and is able to site multiple psychosocial stressors. Patient also disclosed missing 3 days of her medication prior to yesterday. Clinician discussed assistance with her electricity [facility] the [facility]. Clinician conducted psychoeducation on taking medication as prescribed and drinking alcohol when taking medications. Patient denies having friends and family for a support network and discussed alternate ways of supporting her through sobriety (AA in addition to substance abuse treatment through her outpatient provider). Dr. Prado was consulted and the care management this patient; attending physician is agreement with recommendations disposition.
[2017-11-14 00:14] VITALS: BP 134/74
--- NOTE | 2017-11-14 01:32 | EKG REPORT ---
SEVERITY:- NORMAL ECG - SINUS RHYTHM : Confirmed by: Becky Ramsey MD 14-Nov-2017 01:31:47
== END 2017-11-13 22:46 | disposition home or self-care (01) ==
LOC: ER 19:57
DX: F32.9 Major depressive disorder, single episode, unspecified (principal); F17.200 Nicotine dependence, unspecified, uncomplicated; E87.6 Hypokalemia; F10.10 Alcohol abuse, uncomplicated
CPT/HCPCS: 36415; 80053; 80307; 81001; 84703; 85025; 93005; 93010; 99284

== ENCOUNTER 2017-11-29 08:24 | Emergency (ER) | payer MEDICAID, OTHER ==
--- NOTE | 2017-11-29 10:19 | RADIOLOGY REPORT (SQ) ---
EXAM DESCRIPTION: KNEE LEFT 3 VIEWS COMPLETED DATE/TIME: 11/29/2017 9:51 am REASON FOR STUDY: fall pain COMPARISON: None. NUMBER OF VIEWS: Three views. TECHNIQUE: AP, lateral, and sunrise patella radiographic images acquired of the left knee. LIMITATIONS: None. FINDINGS: MINERALIZATION: Normal. BONES: No acute fracture or dislocation. No worrisome bone lesions. JOINT: No effusion. SOFT TISSUES: No soft tissue swelling. No radio-opaque foreign body. OTHER: No other significant finding. IMPRESSION: NEGATIVE STUDY OF THE LEFT KNEE. NO RADIOGRAPHIC EVIDENCE OF ACUTE INJURY. TECHNICAL DOCUMENTATION: JOB ID: [id number] [employer]- All Rights Reserved
--- NOTE | 2017-11-29 10:20 | RADIOLOGY REPORT (SQ) ---
EXAM DESCRIPTION: ANKLE LEFT COMPLETE COMPLETED DATE/TIME: 11/29/2017 9:51 am REASON FOR STUDY: fall pain COMPARISON: None. NUMBER OF VIEWS: Three views. TECHNIQUE: AP, lateral, and oblique radiographic images acquired of the left ankle. LIMITATIONS: None. FINDINGS: MINERALIZATION: Normal. BONES: No acute fracture or dislocation. No worrisome bone lesions. JOINTS: No effusions. SOFT TISSUES: No soft tissue swelling. No foreign body. OTHER: No other significant finding. IMPRESSION: NEGATIVE STUDY OF THE LEFT ANKLE. NO RADIOGRAPHIC EVIDENCE OF ACUTE INJURY. TECHNICAL DOCUMENTATION: JOB ID: [id number] [employer]- All Rights Reserved
--- NOTE | 2017-11-29 10:34 | ER Document Report ---
ED General - General Chief Complaint: Leg Pain Stated Complaint: FALL KNEE ANKLE PAIN Time Seen by Provider: 11/29/17 08:59 TRAVEL OUTSIDE OF THE [place] IN LAST 30 DAYS: Yes - HPI Patient complains to provider of: Left knee left ankle pain Notes: Patient coming in for evaluation left knee left ankle pain patient states she was watching other family's dog when she climbed a fence falling patient has multiple abrasions and bruising to the left side including left lower extremity and left upper extremity. Patient states painful to walk however patient resting comfortably upon my evaluation. Denies any fevers chills nausea vomiting diarrhea denies any other trauma. - Related Data Allergies/Adverse Reactions: promethazine HCl [From Phenergan] Allergy (Intermediate, Verified 11/29/17 08:25 ) Facial swelling Past Medical History - Social History Smoking Status: Current Some Day Smoker Chew tobacco use (# tins/day): No Frequency of alcohol use: None Drug Abuse: None Family History: Reviewed & Not Pertinent, Other - Mother: [place] Patient has suicidal ideation: No Patient has homicidal ideation: No Renal/ Medical History: Denies: Hx Peritoneal Dialysis Psychiatric Medical History: Reports: Hx Attention Deficit Hyperactivity Disorder, Hx Depression Past Surgical History: Reports: Hx Section - Immunizations Hx Diphtheria, Pertussis, Tetanus Vaccination: Yes Review of Systems - Review of Systems Constitutional: No symptoms reported EENT: No symptoms reported Cardiovascular: No symptoms reported Respiratory: No symptoms reported Gastrointestinal: No symptoms reported Genitourinary: No symptoms reported Female Genitourinary: No symptoms reported Musculoskeletal: Other - Left knee left ankle pain Skin: No symptoms reported Hematologic/Lymphatic: No symptoms reported Neurological/Psychological: No symptoms reported Physical Exam - Vital signs Vitals: Temp Pulse Resp BP Pulse Ox 98.1 F 84 16 119/76 99 11/29/17 08:32 11/29/17 08:32 11/29/17 08:32 11/29/17 08:32 11/29/17 08:32 Interpretation: Normal - General General appearance: Appears well, Alert - HEENT Head: Normocephalic, Atraumatic Eyes: Normal Pupils: PERRL - Respiratory Respiratory status: No respiratory distress Chest status: Nontender Breath sounds: Normal Chest palpation: Normal - Cardiovascular Rhythm: Regular Heart sounds: Normal auscultation Murmur: No - Abdominal Inspection: Normal Distension: No distension Bowel sounds: Normal Tenderness: Nontender Organomegaly: No organomegaly - Back Back: Normal, Nontender - Extremities General upper extremity: Nontender, Normal color, Normal ROM, Normal temperature. No: Normal inspection - Multiple abrasions with bruising no signs of any infection of left upper extremity. General lower extremity: Nontender, Normal color, Normal ROM, Normal temperature , Normal weight bearing, Other - No tenderness or laxity elicited with valgus varus anterior posterior drawer testing.. No: Normal inspection - Multiple abrasions and bruises on the left lower extremity no signs of any overt infection., Billy's sign - Neurological Neuro grossly intact: Yes Cognition: Normal Orientation: AAOx4 Wan Coma Scale Eye Opening: Spontaneous Wan Coma Scale Verbal: Oriented Wan Coma Scale Motor: Obeys Commands [place] Coma Scale Total: 15 Speech: Normal Motor strength normal: LUE, RUE, LLE, RLE Sensory: Normal - Psychological Associated symptoms: Normal affect, Normal mood - Skin Skin Temperature: Warm Skin Moisture: Dry Skin Color: Normal Course - Re-evaluation Re-evalutation: 11/30/17 12:25 Patient coming in for left knee left ankle pain x-rays are negative. More likely sprain or deep contusion due to the patient's symptoms. Patient will be discharged home follow-up primary care physician. - Vital Signs Vital signs: Temp Pulse Resp BP Pulse Ox 98 F 67 18 103/68 99 11/29/17 10:44 11/29/17 10:44 11/29/17 10:44 11/29/17 10:44 11/29/17 10:44 Discharge - Discharge Clinical Impression: Multiple abrasions Knee sprain Qualifiers: Encounter type: initial encounter Involved ligament of knee: unspecified ligament Laterality: left Qualified Code(s): S83.92XA - Sprain of unspecified site of left knee, initial encounter Ankle sprain Qualifiers: Encounter type: initial encounter Involved ligament of ankle: unspecified ligament Laterality: left Qualified Code(s): S93.402A - Sprain of unspecified ligament of left ankle, initial encounter Condition: Good Disposition: HOME, SELF-CARE Instructions: Abrasions ([facility]), Use of Crutches ([facility]), Ice Packs ([facility]), Oral Narcotic Medication ([facility]), Sprained Ankle ([facility]), Sprained Knee ([facility]) Additional Instructions: Your x-rays not show any significant pathology. Please follow-up with your primary care physician. He may place warm packs ice packs on the areas that hurt. Return to ER symptoms worsen follow-up with your primary care physician. Take medications as prescribed Prescriptions: Ibuprofen [Motrin 600 Mg Tablet] 600 mg PO TID #30 tablet Tramadol HCl [Ultram 50 mg Tablet] 50 mg PO ASDIR PRN #10 tablet PRN Reason: Forms: Return to Work Referrals: KINGSLEY FORREST, PSYCHIATRIC REGISTERED NURSE-C [Primary Care Provider] - Follow up as needed
[2017-11-29 10:47] VITALS: BP 103/68
== END 2017-11-29 10:44 | disposition home or self-care (01) ==
LOC: ER 08:24
DX: S83.92XA Sprain of unspecified site of left knee, initial encounter (principal); S93.402A Sprain of unspecified ligament of left ankle, initial encounter; S40.022A Contusion of left upper arm, initial encounter; W17.89XA Other fall from one level to another, initial encounter; Y93.39 Activity, other involving climbing, rappelling and jumping off; F17.200 Nicotine dependence, unspecified, uncomplicated; Z88.8 Allergy status to other drugs, medicaments and biological substances
CPT/HCPCS: 99283

== ENCOUNTER 2018-04-12 13:21 | Emergency (ER) | payer OTHER, MEDICAID ==
[2018-04-12 14:00] VITALS: BP 111/72
[2018-04-12] MEDS ORDERED: ONDANSETRON 4 MG TAB.RAPDIS PO ONE (14:09)
--- NOTE | 2018-04-12 14:15 | ER Document Report ---
ED General - General Chief Complaint: Pelvic Pain Stated Complaint: PELVIC PAIN Time Seen by Provider: 04/12/18 14:03 Notes: 22-year-old female approximately 7 weeks gestation here with complaints of bilateral lower pelvic pain ongoing for the past 5 weeks along with nausea. She was seen at [facility] last week and had blood work as well as ultrasound performed. She reports that she was told "there is no ectopic" and that the ultrasound was otherwise normal. She does not have any vaginal bleeding discharge dysuria hematuria fevers chills. The only reason she is here today is because her sister made her come due to the ongoing pelvic pains. TRAVEL OUTSIDE OF THE [place] IN LAST 30 DAYS: No - Related Data Allergies/Adverse Reactions: promethazine HCl [From Phenergan] Allergy (Intermediate, Verified 04/12/18 13:22 ) Facial swelling Past Medical History - Social History Smoking Status: Never Smoker Chew tobacco use (# tins/day): No Frequency of alcohol use: None Drug Abuse: None Family History: Reviewed & Not Pertinent, Other - Mother: [place] Patient has suicidal ideation: No Patient has homicidal ideation: No Renal/ Medical History: Denies: Hx Peritoneal Dialysis Psychiatric Medical History: Reports: Hx Attention Deficit Hyperactivity Disorder, Hx Depression Past Surgical History: Reports: Hx Section - Immunizations Hx Diphtheria, Pertussis, Tetanus Vaccination: Yes Review of Systems - Review of Systems Notes: See history of present illness for pertinent positive review of systems; otherwise all review of systems have been reviewed and are negative Physical Exam - Vital signs Vitals: Temp Pulse Resp BP Pulse Ox 97.9 F 77 18 111/72 99 04/12/18 13:58 04/12/18 13:58 04/12/18 13:58 04/12/18 13:58 04/12/18 13:58 - Notes Notes: PHYSICAL EXAMINATION: GENERAL: Well-appearing and in no acute distress. HEAD: Atraumatic, normocephalic. EYES: Pupils equal round and reactive to light, extraocular movements intact, sclera anicteric, conjunctiva are normal. ENT: nares patent, oropharynx clear without exudates. Moist mucous membranes. NECK: Normal range of motion, supple without lymphadenopathy LUNGS: CTAB and equal. No wheezes rales or rhonchi. HEART: Regular rate and rhythm without murmurs ABDOMEN: Soft, no tenderness. No facial grimacing/wincing upon palpation. No guarding, no rebound. EXTREMITIES: Normal range of motion, no pitting edema. No cyanosis. NEUROLOGICAL: Cranial nerves grossly intact. Normal sensory/motor exams. PSYCH: Normal mood, normal affect. SKIN: Warm, Dry, normal turgor, no rashes or lesions noted Course - Re-evaluation Re-evalutation: 04/12/18 14:15 MEDICAL DECISION MAKING: The patient has had ultrasound at [facility] that does not show any ectopic or acute emergency condition She seems to be a reliable patient and knowledgeable about her medical problems and history I suspect this is likely round ligament pains that have been ongoing for 5 weeks now Discussed with the patient to take only Tylenol for pain and I will prescribe her Zofran for her nausea She declines a dose of Tylenol here; instructed follow-up RESOLUTION REP next day or few Patient understands and agrees to the plan of care - Vital Signs Vital signs: Temp Pulse Resp BP Pulse Ox 97.9 F 77 18 111/72 99 04/12/18 13:58 04/12/18 13:58 04/12/18 13:58 04/12/18 13:58 04/12/18 13:58 Discharge - Discharge Clinical Impression: Pelvic pain affecting Qualifiers: Trimester: first trimester Qualified Code(s): O26.891 - Other specified related conditions, first trimester; R10.2 - Pelvic and perineal pain ; R10.2 - Pelvic and perineal pain Condition: Good Disposition: HOME, SELF-CARE Instructions: Pelvic Pain in and Round Ligament Pain ([facility]) Additional Instructions: You were seen in the emergency department at [facility]. Since he had a normal ultrasound at [facility] last week, this is likely round ligament pains. Use the Zofran as needed for nausea and vomiting. Only use Tylenol for pain. Please followup with your primary RESOLUTION REP physician in the next few days for further management/evaluation. Please return to the emergency department for worsening of symptoms or any symptom that you deem to be concerning or life- threatening. Thank you for allowing us to be part of your care. Prescriptions: Ondansetron [Zofran Odt 4 mg Tablet] 1 tab PO Q4H PRN #15 tab.rapdis PRN Reason: For Nausea/Vomiting Referrals: KINGSLEY FORREST, METAL MILLING MACHINE OPERATOR-C [Primary Care Provider] - Follow up as needed
== END 2018-04-12 14:15 | disposition home or self-care (01) ==
LOC: ER 13:21
DX: O26.891 Other specified pregnancy related conditions, first trimester (principal); R10.2 Pelvic and perineal pain; Z3A.01 Less than 8 weeks gestation of pregnancy
CPT/HCPCS: 99283; S0119

== ENCOUNTER 2018-04-21 21:00 | Emergency (ER) | payer OTHER, MEDICAID ==
[2018-04-21 22:01] LABS: ABSOLUTE EOSINOPHILS # (AUTO) 0.1 10^3/uL (0.0-0.6); ABSOLUTE LYMPHOCYTES (AUTO) 2.6 10^3/uL (0.5-4.7); ABSOLUTE MONOCYTES (AUTO) 0.6 10^3/uL (0.1-1.4); BASOPHILS % (AUTO) 0.5 % (0-2); EOSINOPHILS % (AUTO) 0.9 % (0-6); HEMATOCRIT 35.1 % (36.0-47.0); LYMPHOCYTES % (AUTO) 35.5 % (13-45); MEAN CORPUSCULAR HEMOGLOBIN 26.2 pg (27.0-33.4); MEAN CORPUSCULAR HGB CONC 34.3 g/dL (32.0-36.0); MEAN CORPUSCULAR VOLUME 76 fl (80-97); MONOCYTES % (AUTO) 8.5 % (3-13); PLATELET COUNT 243 10^3/uL (150-450); RED CELL DISTRIBUTION WIDTH 16.6 % (11.5-14.0); SEGMENTED NEUTROPHILS % (AUTO) 54.6 % (42-78); TOTAL CELLS COUNTED % (AUTO) 100 %; WHITE BLOOD COUNT 7.4 10^3/uL (4.0-10.5)
[2018-04-21 22:16] LABS: ALANINE AMINOTRANSFERASE 27 U/L (9-52); ALBUMIN 4.3 g/dL (3.5-5.0); ALKALINE PHOSPHATASE 60 U/L (38-126); ANION GAP 11 (5-19); ASPARTATE AMINO TRANSFERASE 22 U/L (14-36); BILIRUBIN,DIRECT 0.3 mg/dL (0.0-0.4); BILIRUBIN,TOTAL 0.5 mg/dL (0.2-1.3); BLOOD UREA NITROGEN 13 mg/dL (7-20); CALCIUM 9.5 mg/dL (8.4-10.2); CARBON DIOXIDE 27 mmol/L (22-30); CHLORIDE 101 mmol/L (98-107); GLUCOSE 87 mg/dL (75-110); POTASSIUM 4.3 mmol/L (3.6-5.0); SODIUM 138.7 mmol/L (137-145); TOTAL PROTEIN 7.3 g/dL (6.3-8.2)
[2018-04-21 22:40] LABS: APPEARANCE,URINE SLIGHTLY-CLOUDY; BILIRUBIN,URINE NEGATIVE (NEGATIVE); COLOR,URINE YELLOW; GLUCOSE, URINE NEGATIVE (NEGATIVE); KETONES,URINE NEGATIVE (NEGATIVE); LEUKOCYTE ESTERASE,URINE NEGATIVE (NEGATIVE); NITRITE,URINE NEGATIVE (NEGATIVE); PROTEIN,URINE NEGATIVE (NEGATIVE); URINE SPECIFIC GRAVITY 1.026
[2018-04-21] MEDS ORDERED: PYRIDOXINE HCL 50 MG TABLET PO ONE (22:58)
[2018-04-21] MEDS ORDERED: ACETAMINOPHEN 325 MG TABLET PO ONE (23:29)
--- NOTE | 2018-04-21 23:35 | ER Document Report ---
ED GI/ - General Chief Complaint: Abdominal Pain Stated Complaint: NAUSEA/VOMITING Time Seen by Provider: 04/21/18 21:42 Mode of Arrival: Ambulatory Information source: Patient Notes: 22-year-old female presented ED for complaint of pelvic pain. She states she was seen at an urgent care at 3 weeks and told she was 3 weeks . She states about 3 weeks [facility] she was 5 weeks and 5 days . Patient states she is having pelvic pain and some nausea but no vaginal bleeding. Patient states she is 2 para 1 and this is completely different than the first 1. TRAVEL OUTSIDE OF THE [place] IN LAST 30 DAYS: No - HPI Patient complains to provider of: Pelvic pain, Onset: Other - 2-3 days Timing/Duration: Gradual Quality of pain: Cramping Severity at maximum: Moderate Severity in ED: Moderate Pain Level: 4 Location: Pelvis Vaginal bleeding (Compared to normal period): None Associated symptoms: Nausea, Other - Pelvic pain. denies: Urinary hesitancy, Urinary frequency, Urinary retention, Urinary urgency, Vaginal discharge Exacerbated by: Denies Relieved by: Denies Similar symptoms previously: Yes Recently seen / treated by doctor: Yes - Related Data Allergies/Adverse Reactions: promethazine HCl [From Phenergan] Allergy (Intermediate, Verified 04/21/18 21:09 ) Facial swelling Past Medical History - General Information source: Patient - Social History Smoking Status: Never Smoker Chew tobacco use (# tins/day): No Frequency of alcohol use: None Drug Abuse: None Lives with: Spouse/Significant other Family History: Reviewed & Not Pertinent, Other - Mother: [place] Patient has suicidal ideation: No Patient has homicidal ideation: No - Past Medical History Cardiac Medical History: Reports: None Pulmonary Medical History: Reports: None EENT Medical History: Reports: None Neurological Medical History: Reports: None Endocrine Medical History: Reports: None Renal/ Medical History: Reports: None Malignancy Medical History: Reports: None GI Medical History: Reports: None Musculoskeltal Medical History: Reports None Skin Medical History: Reports None Psychiatric Medical History: Reports: Hx Attention Deficit Hyperactivity Disorder, Hx Depression Traumatic Medical History: Reports: None Infectious Medical History: Reports: None Past Surgical History: Reports: Hx Section - Immunizations Hx Diphtheria, Pertussis, Tetanus Vaccination: Yes Review of Systems - Review of Systems Constitutional: No symptoms reported EENT: No symptoms reported Cardiovascular: No symptoms reported Respiratory: No symptoms reported Gastrointestinal: No symptoms reported Genitourinary: No symptoms reported Female Genitourinary: , Other - Pelvic pain Musculoskeletal: No symptoms reported Skin: No symptoms reported Hematologic/Lymphatic: No symptoms reported Neurological/Psychological: No symptoms reported -: Yes All other systems reviewed and negative Physical Exam - Vital signs Vitals: Temp Pulse Resp BP Pulse Ox 98.6 F 72 14 123/71 98 04/21/18 21:18 04/21/18 21:18 04/21/18 21:18 04/21/18 21:18 04/21/18 21:18 Interpretation: Normal - General General appearance: Appears well, Alert - HEENT Head: Normocephalic, Atraumatic Eyes: Normal Pupils: PERRL - Respiratory Respiratory status: No respiratory distress Chest status: Nontender Breath sounds: Normal Chest palpation: Normal - Cardiovascular Rhythm: Regular Heart sounds: Normal auscultation Murmur: No - Abdominal Inspection: Normal Distension: No distension Bowel sounds: Normal Tenderness: Nontender Organomegaly: No organomegaly - Back Back: Normal, Nontender - Extremities General upper extremity: Normal inspection, Nontender, Normal color, Normal ROM , Normal temperature General lower extremity: Normal inspection, Nontender, Normal color, Normal ROM , Normal temperature, Normal weight bearing. No: Billy's sign - Neurological Neuro grossly intact: Yes Cognition: Normal Orientation: AAOx4 Wan Coma Scale Eye Opening: Spontaneous Wan Coma Scale Verbal: Oriented Wan Coma Scale Motor: Obeys Commands Wan Coma Scale Total: 15 Speech: Normal Motor strength normal: LUE, RUE, LLE, RLE Sensory: Normal - Psychological Associated symptoms: Normal affect, Normal mood - Skin Skin Temperature: Warm Skin Moisture: Dry Skin Color: Normal Course - Re-evaluation Re-evalutation: 04/22/18 02:43 Labs discussed with patient before discharging written report of labs given to patient to follow-up with MEASURING MACHINE TENDER. Patient was treated with vitamin B6 while in the emergency room. - Vital Signs Vital signs: Temp Pulse Resp BP Pulse Ox 98.4 F 76 18 112/67 98 04/22/18 00:03 04/22/18 00:03 04/22/18 00:03 04/22/18 00:03 07/07/18 00:03 - Laboratory Result Diagrams: 04/21/18 21:50 04/21/18 21:50 Laboratory results interpreted by me: 04/21/18 04/21/18 04/21/18 21:50 21:50 22:07 Hct 35.1 L MCV 76 L MCH 26.2 L RDW 16.6 H Beta HCG, Quant [id number] H Urine Urobilinogen 4.0 H Discharge - Discharge Clinical Impression: Pelvic pain affecting in first trimester, antepartum Condition: Stable Disposition: HOME, SELF-CARE Instructions: [facility]-[employer]ertilizer Loader Doctors Additional Instructions: Pelvic Pain in Lower abdominal pain during can have many causes. We look for serious causes such as appendicitis, tubal , miscarriage, placental separation, or urinary tract infection. Less serious causes of pain include corpus luteum cyst (ovarian cyst of ) or stretching of the pelvic tissues by the enlarging uterus. Sometimes the pain comes from the bowels. If no specific cause for the pain is found, we attribute the pain to stretching of the uterine ligaments. This is called "round ligament strain." It is not dangerous. Just rest until the pain goes away. Call us or come back for reexamination if any problems occur, such as: (1) Pain that becomes more severe, steady, or becomes concentrated in one specific area. Also, pain that is more severe with movement or coughing. (2) Vomiting that persists or becomes more frequent. (3) Blood in the vomitus, urine, or bowel movements. Blood in the stool may have a tarry or black appearance. (4) Shaking chills or fever greater than 100 degrees. (5) The abdomen becomes more distended or swollen. (6) Bowel movements cease. (7) Vaginal bleeding. Acetaminophen Acetaminophen may be taken for pain relief or fever control. It's much safer than aspirin, offering a wider range of "safe" dosages. It is safe during . Some brand names are Tylenol, Panadol, Datril, Anacin 3, Tempra, and Liquiprin. Acetaminophen can be repeated every four hours. The following are maximum recommended dosages: WEIGHT Dose Drops Elixir Chewable( 80mg) (LBS.) drprs=droppers tsp=teaspoon 6 40 mg .4 ml (1/2) 6-11 80 mg .8 ml (full) 1/2 tsp 1 tab 12-16 120 mg 1 1/2 drprs 3/4 tsp 1 1/2 tabs 17-23 160 mg 2 drprs 1 tsp 2 tabs 24-30 240 mg 3 drprs 1 1/2 tsp 3 tabs 30-35 320 mg 2 tsp 4 tabs 36-41 360 mg 2 1/4 tsp 4 1 /2 tabs 42-47 400 mg 2 1/2 tsp 5 tabs 48-53 480 mg 3 tsp 6 tabs 54-59 520 mg 3 1/4 tsp 6 1 /2 tabs 60-64 560 mg 3 1/2 tsp 7 tabs 65-70 600 mg 3 3/4 tsp 7 1 /2 tabs 71-76 640 mg 4 tsp 8 tabs 77-82 720 mg 4 1/2 tsp 9 tabs 83-88 800 mg 5 tsp 10 tabs >89 pounds or adults 650 mg to 900 mg Acetaminophen can be repeated every four hours. Maximum daily dose not to exceed 4000 mg. These maximum recommended dosages are slightly higher than the dosages written on the product container, but these dosages are very safe and well below the toxic dosage for acetaminophen. Increase your p.o. fluid intake, fruits and vegetables, whole grains, and your exercise to help with your constipation. Try drinking prune juice that is warmed in the morning. Vitamin B6 can help with your nausea during . Elena elena snaps and elena elaine can also help with your nausea. Please follow-up with your MEASURING MACHINE TENDER as scheduled or sooner if he continued to have pain. FOLLOW-UP CARE: If you have been referred to a physician for follow-up care, call the physician s office for an appointment as you were instructed or within the next two days. If you experience worsening or a significant change in your symptoms, notify the physician immediately or return to the Emergency Department at any time for re-evaluation.
[2018-04-21] MEDS ORDERED: PYRIDOXINE HCL 50 MG TABLET ONE (23:53)
[2018-04-22 00:14] VITALS: BP 112/67
== END 2018-04-22 00:07 | disposition home or self-care (01) ==
LOC: ER 21:00
DX: O26.891 Other specified pregnancy related conditions, first trimester (principal); R10.2 Pelvic and perineal pain; O21.9 Vomiting of pregnancy, unspecified; Z3A.00 Weeks of gestation of pregnancy not specified; Z88.8 Allergy status to other drugs, medicaments and biological substances
CPT/HCPCS: 99284; 36415; 84702; 85025; 80053; 81001; J3490

== ENCOUNTER 2018-05-03 15:19 | Emergency (ER) | payer OTHER, MEDICAID ==
--- NOTE | 2018-05-03 17:05 | ER Document Report ---
ED Medical Screen (RME) - General Chief Complaint: Arm Pain Stated Complaint: ARM PAIN Time Seen by Provider: 05/03/18 17:01 Mode of Arrival: Ambulatory Information source: Patient TRAVEL OUTSIDE OF THE [place] IN LAST 30 DAYS: No - HPI Patient complains to provider of: Left upper arm pain and swelling Notes: 05/03/18 17:04 Patient is a 22-year-old female who was sent to the emergency room by urgent care for complaints of left upper arm swelling, patient is currently 9 weeks and was seen by [facility] on Tuesday and had blood drawn at the time, over the past few days has developed increased redness and swelling just proximal to the blood draw site, no history of DVTs but strong family history - Related Data Allergies/Adverse Reactions: promethazine HCl [From Phenergan] Allergy (Intermediate, Verified 05/03/18 16:53 ) Facial swelling Past Medical History - Social History Chew tobacco use (# tins/day): No Frequency of alcohol use: None Drug Abuse: None Renal/ Medical History: Denies: Hx Peritoneal Dialysis Psychiatric Medical History: Reports: Hx Attention Deficit Hyperactivity Disorder, Hx Depression Past Surgical History: Reports: Hx Abdominal Surgery - pyloric stenosis, Hx Section - Immunizations Hx Diphtheria, Pertussis, Tetanus Vaccination: Yes Physical Exam - Vital signs Vitals: Temp Pulse Resp BP Pulse Ox 97.7 F 91 16 127/82 H 100 05/03/18 15:35 05/03/18 15:35 05/03/18 15:35 05/03/18 15:35 05/03/18 15:35 Course - Vital Signs Vital signs: Temp Pulse Resp BP Pulse Ox 97.7 F 91 16 127/82 H 100 05/03/18 15:35 05/03/18 15:35 05/03/18 15:35 05/03/18 15:35 05/03/18 15:35 Doctor's Discharge - Discharge Referrals: LUCAS CALABRESE MD [Primary Care Provider] - Follow up as needed
--- NOTE | 2018-05-03 18:28 | ER Document Report ---
ED Extremity Problem, Upper - General Chief Complaint: Arm Pain Stated Complaint: ARM PAIN Time Seen by Provider: 05/03/18 17:01 Mode of Arrival: Ambulatory Information source: Patient Notes: 22-year-old female presented ED for complaint of pain in the left upper arm with redness and swelling. She is not currently 9 weeks . She states she was seen at the [facility]'s office on Tuesday and had blood work done. She states over the past couple days her arm has developed the redness and swelling. She was seen in the pit area and they ordered a Doppler which shows a thrombus in the superficial cephalic vein. This is alert oriented respirations regular and unlabored. Patient denies any fevers. TRAVEL OUTSIDE OF THE [place] IN LAST 30 DAYS: No - HPI Patient complains to provider of: Left, Arm Onset: Other - As 2-3 days Recent injury: No - Patient had a blood draw on Tuesday and this area Where: Other - Blood work was drawn at the [facility] office on Tuesday Quality of pain: Pressure Severity of pain: Moderate Pain Level: 4 Associated symptoms: Other - Redness pain and swelling Exacerbated by: Movement Relieved by: Nothing Similar symptoms previously: No Recently seen / treated by doctor: Yes - Related Data Allergies/Adverse Reactions: promethazine HCl [From Phenergan] Allergy (Intermediate, Verified 05/03/18 16:53 ) Facial swelling Past Medical History - General Information source: Patient - Social History Smoking Status: Never Smoker Cigarette use (# per day): No Chew tobacco use (# tins/day): No Smoking Education Provided: No Frequency of alcohol use: None Drug Abuse: None Lives with: Family Family History: CAD, Hyperlipidemia, Hypertension, Malignancy, Other - Mother: [place] Patient has suicidal ideation: No Patient has homicidal ideation: No - Past Medical History Cardiac Medical History: Reports: None Pulmonary Medical History: Reports: None EENT Medical History: Reports: None Neurological Medical History: Reports: None Endocrine Medical History: Reports: None Renal/ Medical History: Reports: None Malignancy Medical History: Reports: None GI Medical History: Reports: None Psychiatric Medical History: Reports: Hx Attention Deficit Hyperactivity Disorder, Hx Depression Traumatic Medical History: Reports: None Infectious Medical History: Reports: None Past Surgical History: Reports: Hx Abdominal Surgery - pyloric stenosis, Hx Section - Immunizations Hx Diphtheria, Pertussis, Tetanus Vaccination: Yes Review of Systems - Review of Systems Constitutional: No symptoms reported EENT: No symptoms reported Cardiovascular: No symptoms reported Respiratory: No symptoms reported Gastrointestinal: No symptoms reported Genitourinary: No symptoms reported Female Genitourinary: No symptoms reported Musculoskeletal: No symptoms reported Skin: Other - Erythema swelling and discomfort to the left upper arm Hematologic/Lymphatic: No symptoms reported Neurological/Psychological: No symptoms reported -: Yes All other systems reviewed and negative Physical Exam - Vital signs Vitals: Temp Pulse Resp BP Pulse Ox 97.7 F 91 16 127/82 H 100 05/03/18 15:35 05/03/18 15:35 05/03/18 15:35 05/03/18 15:35 05/03/18 15:35 Interpretation: Normal - General General appearance: Appears well, Alert - HEENT Head: Normocephalic, Atraumatic Eyes: Normal Pupils: PERRL - Respiratory Respiratory status: No respiratory distress Chest status: Nontender Breath sounds: Normal Chest palpation: Normal - Cardiovascular Rhythm: Regular Heart sounds: Normal auscultation Murmur: No - Abdominal Inspection: Normal Distension: No distension Bowel sounds: Normal Tenderness: Nontender Organomegaly: No organomegaly - Back Back: Normal, Nontender - Extremities General upper extremity: Normal ROM, Normal temperature General lower extremity: Normal inspection, Nontender, Normal color, Normal ROM , Normal temperature, Normal weight bearing. No: Billy's sign Arm: Tender, Other - Erythema, Doppler shows thrombus in the superficial cephalic vein. No: Abrasion, Deformity, Ecchymosis, Instability, Laceration Forearm: Normal, Nontender Wrist: Normal, Nontender - Neurological Neuro grossly intact: Yes Cognition: Normal Orientation: AAOx4 [place] Coma Scale Eye Opening: Spontaneous [place] Coma Scale Verbal: Oriented [place] Coma Scale Motor: Obeys Commands [place] Coma Scale Total: 15 Speech: Normal Motor strength normal: LUE, RUE, LLE, RLE Sensory: Normal - Psychological Associated symptoms: Normal affect, Normal mood - Skin Skin Temperature: Warm Skin Moisture: Dry Skin Color: Normal Location of irregularity: Extremities - Left upper arm erythema tenderness Character of irregularity: Erythematous Irregularity with: Swelling, Tenderness. negative: Warmth Course - Re-evaluation Re-evalutation: 05/03/18 18:36 Doppler discussed with patient and with Dr. Menard. Patient states she has taken baby aspirin as she has been instructed by her [facility]. Patient was instructed to use warm compresses and to call her [facility] [employer] and informed them that she has a thrombus in the left superficial cephalic vein no DVT. Patient verbalized understanding of instructions and agreement with treatment plan. Patient refused any Tylenol or pain medication at this time. - Vital Signs Vital signs: Temp Pulse Resp BP Pulse Ox 98.8 F 71 16 121/80 99 05/03/18 18:43 05/03/18 18:43 05/03/18 18:43 05/03/18 18:43 05/03/18 18:43 - Diagnostic Test Radiology reviewed: Image reviewed Discharge - Discharge Clinical Impression: superficial thombus left cephalic Condition: Stable Disposition: HOME, SELF-CARE Additional Instructions: Seen for today for redness and swelling to your left upper arm. You have a blood clot in your superficial cephalic vein. This is not a deep vein thrombosis this is superficial. Use warm compresses to the area for discomfort and to help dissolve the clot. Elevate her arm. Call your [facility] tomorrow for a follow-up visit in 3-5 days. Take medications as ordered by your [facility] [facility] [employer]. Warm damp cloth 15 minutes every 4 hours while awake. Acetaminophen Acetaminophen may be taken for pain relief or fever control. It's much safer than aspirin, offering a wider range of "safe" dosages. It is safe during . Some brand names are Tylenol, Panadol, Datril, Anacin 3, Tempra, and Liquiprin. Acetaminophen can be repeated every four hours. The following are maximum recommended dosages: WEIGHT Dose Drops Elixir Chewable( 80mg) (LBS.) drprs=droppers tsp=teaspoon 6 40 mg .4 ml (1/2) 6-11 80 mg .8 ml (full) 1/2 tsp 1 tab 12-16 120 mg 1 1/2 drprs 3/4 tsp 1 1/2 tabs 17-23 160 mg 2 drprs 1 tsp 2 tabs 24-30 240 mg 3 drprs 1 1/2 tsp 3 tabs 30-35 320 mg 2 tsp 4 tabs 36-41 360 mg 2 1/4 tsp 4 1 /2 tabs 42-47 400 mg 2 1/2 tsp 5 tabs 48-53 480 mg 3 tsp 6 tabs 54-59 520 mg 3 1/4 tsp 6 1 /2 tabs 60-64 560 mg 3 1/2 tsp 7 tabs 65-70 600 mg 3 3/4 tsp 7 1 /2 tabs 71-76 640 mg 4 tsp 8 tabs 77-82 720 mg 4 1/2 tsp 9 tabs 83-88 800 mg 5 tsp 10 tabs >89 pounds or adults 650 mg to 900 mg Acetaminophen can be repeated every four hours. Maximum daily dose not to exceed 4000 mg. These maximum recommended dosages are slightly higher than the dosages written on the product container, but these dosages are very safe and well below the toxic dosage for acetaminophen. FOLLOW-UP CARE: If you have been referred to a physician for follow-up care, call the physician s office for an appointment as you were instructed or within the next two days. If you experience worsening or a significant change in your symptoms, notify the physician immediately or return to the Emergency Department at any time for re-evaluation. Forms: Elevated Blood Pressure Referrals: LUCAS CALABRESE MD [Primary Care Provider] - Follow up as needed
[2018-05-03 18:46] VITALS: BP 121/80
--- NOTE | 2018-05-03 19:57 | RADIOLOGY REPORT (SQ) ---
EXAM DESCRIPTION: VENOUS UNILATERAL UPPER COMPLETED DATE/TIME: 05/03/2018 7:12 pm REASON FOR STUDY: LEFT UPPER ARM SWELLING COMPARISON: None. TECHNIQUE: Dynamic and static gudino scale and color images acquired of the left arm venous system. Se lected spectral images acquired with additional compression and augmentation maneuvers. The contralat eral subclavian vein and internal jugular vein were also imaged. Images stored on PACS. LIMITATIONS: None. FINDINGS: INTERNAL JUGULAR VEIN: Normal phasicity, compression, augmentation. No visualized echogeni c material on gudino scale. No defects on color images. Comparison opposite side normal. SUBCLAVIAN VEIN: Normal compression, augmentation. No visualized echogenic material on gudino scale. No defects on color images. AXILLARY VEIN: Normal compression, augmentation. No visualized echogenic material on gudino scale. No d efects on color images. BRACHIAL VEIN: Normal compression, augmentation. No visualized echogenic material on gudino scale. No d efects on color images. BASILIC VEIN: Normal compression, augmentation. No visualized echogenic material on gudino scale. No de fects on color images. CEPHALIC VEIN: Noncompressible. The cephalic vein is thrombosed from the antecubital fossa to the mid bicep level. OTHER: No other significant finding. CONTRALATERAL SUBCLAVIAN VEIN AND INTERNAL JUGULAR VEIN: Normal phasicity, compression and augmentation. No visualized echogenic material on gudino scale. No de fects on color images. IMPRESSION: No evidence for thrombus in the deep veins. The cephalic vein is thrombosed from the an tecubital fossa to the mid bicep level. TECHNICAL DOCUMENTATION: JOB ID: [id number] 2010 [employer]- All Rights Reserved Reading location - IP/workstation name: [email or web address]
== END 2018-05-03 18:58 | disposition home or self-care (01) ==
LOC: ER 15:19
DX: O22.21 Superficial thrombophlebitis in pregnancy, first trimester (principal); M79.622 Pain in left upper arm; R22.32 Localized swelling, mass and lump, left upper limb; Z3A.09 9 weeks gestation of pregnancy
CPT/HCPCS: 93971; 99284

== ENCOUNTER 2018-05-27 16:35 | Emergency (ER) | payer OTHER, MEDICAID ==
--- NOTE | 2018-05-27 17:30 | ER Document Report ---
ED Medical Screen (RME) - General Chief Complaint: OB Problem (<20wks) Stated Complaint: ABDOMINAL PAIN Time Seen by Provider: 05/27/18 17:27 Mode of Arrival: Ambulatory Information source: Patient TRAVEL OUTSIDE OF THE [place] IN LAST 30 DAYS: No - HPI Patient complains to provider of: ; lower abd cramping Onset: This afternoon - pt is approx 12 weeks and developed severe lower adominal/pelvic cramping earlier today. Denies vaginal bleeding - Related Data Allergies/Adverse Reactions: promethazine HCl [From Phenergan] Allergy (Intermediate, Verified 05/27/18 16:36 ) Facial swelling Past Medical History - General Last Menstrual Period: 02/28/2018 - Social History Chew tobacco use (# tins/day): No Frequency of alcohol use: None Drug Abuse: None Renal/ Medical History: Denies: Hx Peritoneal Dialysis Psychiatric Medical History: Reports: Hx Attention Deficit Hyperactivity Disorder, Hx Depression Past Surgical History: Reports: Hx Abdominal Surgery - pyloric stenosis, Hx Section - Immunizations Hx Diphtheria, Pertussis, Tetanus Vaccination: Yes Physical Exam - Vital signs Vitals: Temp Pulse Resp BP Pulse Ox 99.4 F 95 16 119/81 98 05/27/18 16:41 05/27/18 16:41 05/27/18 16:41 05/27/18 16:41 05/27/18 16:41 Course - Vital Signs Vital signs: Temp Pulse Resp BP Pulse Ox 99.4 F 95 16 119/81 98 05/27/18 16:41 05/27/18 16:41 05/27/18 16:41 05/27/18 16:41 05/27/18 16:41 Doctor's Discharge - Discharge Referrals: LUCAS CALABRESE MD [Primary Care Provider] - Follow up as needed
[2018-05-27 18:24] LABS: ABSOLUTE EOSINOPHILS # (AUTO) 0.1 10^3/uL (0.0-0.6); ABSOLUTE LYMPHOCYTES (AUTO) 2.5 10^3/uL (0.5-4.7); ABSOLUTE MONOCYTES (AUTO) 0.6 10^3/uL (0.1-1.4); ABSOLUTE NEUT (AUTO) 5.1 10^3/uL (1.7-8.2); BASOPHILS % (AUTO) 0.4 % (0-2); EOSINOPHILS % (AUTO) 1.2 % (0-6); HEMATOCRIT 37.5 % (36.0-47.0); HEMOGLOBIN 12.7 g/dL (12.0-15.5); LYMPHOCYTES % (AUTO) 30.4 % (13-45); MEAN CORPUSCULAR HEMOGLOBIN 26.9 pg (27.0-33.4); MEAN CORPUSCULAR VOLUME 79 fl (80-97); MONOCYTES % (AUTO) 6.8 % (3-13); PLATELET COUNT 251 10^3/uL (150-450); RED BLOOD COUNT 4.74 10^6/uL (3.72-5.28); RED CELL DISTRIBUTION WIDTH 17.7 % (11.5-14.0); SEGMENTED NEUTROPHILS % (AUTO) 61.2 % (42-78); TOTAL CELLS COUNTED % (AUTO) 100 %; WHITE BLOOD COUNT 8.3 10^3/uL (4.0-10.5)
[2018-05-27 18:38] LABS: ALANINE AMINOTRANSFERASE 22 U/L (9-52); ALBUMIN 4.1 g/dL (3.5-5.0); ALKALINE PHOSPHATASE 68 U/L (38-126); ANION GAP 13 (5-19); ASPARTATE AMINO TRANSFERASE 19 U/L (14-36); BILIRUBIN,DIRECT 0.2 mg/dL (0.0-0.4); BILIRUBIN,TOTAL 0.5 mg/dL (0.2-1.3); BLOOD UREA NITROGEN 8 mg/dL (7-20); CALCIUM 9.3 mg/dL (8.4-10.2); CARBON DIOXIDE 24 mmol/L (22-30); CHLORIDE 102 mmol/L (98-107); GLUCOSE 92 mg/dL (75-110); POTASSIUM 4.1 mmol/L (3.6-5.0); SODIUM 138.7 mmol/L (137-145); TOTAL PROTEIN 7.5 g/dL (6.3-8.2)
--- NOTE | 2018-05-27 19:08 | RADIOLOGY REPORT (SQ) ---
EXAM DESCRIPTION: U/S OB TRANSVAG W/DOPPLER COMPLETED DATE/TIME: 05/27/2018 6:27 pm REASON FOR STUDY: low abd pain COMPARISON: None. TECHNIQUE: Transabdominal images acquired of the pelvis. All images stored on PACs. bHCG: Pending. CLINICAL DATES: LMP 02/28/2018, EGA 12 weeks 4 days. LIMITATIONS: None. FINDINGS: FETUS: Living intrauterine . ULTRASOUND EGA: 12 weeks 5 days ULTRASOUND JORDAN: 12/04/2018 CRL: 6.41 cm FHR: 163 beats per minute. SUBCHORIONIC BLEED: No. SIZE OF BLEED: Not applicable. UTERUS: Measures 12.8 x 9.4 x 10.3 cm. No focal myometrial mass was seen. CERVICAL LENGTH: 2.8 cm. Closed. RIGHT ADNEXA: Ovary not identified. LEFT ADNEXA: Ovary not identified. FREE FLUID: None. IMPRESSION: LIVING INTRAUTERINE . EGA 12 WEEKS 5 DAYS. Trimester of : First - 0 to 13 weeks. TECHNICAL DOCUMENTATION: JOB ID: [id number] 2010 [email or web address]- All Rights Reserved rev Reading location - IP/workstation name: [email or web address]
--- NOTE | 2018-05-27 20:47 | ER Document Report ---
ED General - General Chief Complaint: OB Problem (<20wks) Stated Complaint: ABDOMINAL PAIN Time Seen by Provider: 05/27/18 17:27 Mode of Arrival: Ambulatory Notes: Patient is a 22-year-old female at 12 weeks by LMP who presents with 2 hours of right lower abdominal pain. The patient states that the pain came on relatively abruptly and is an intermittent, aching, stabbing pain to her right lower abdomen. The pain comes on spontaneously and resolves spontaneously. She denies any history of similar pain in the past. Denies any known trauma to the area. She denies any vaginal bleeding or vaginal discharge. No dysuria. She denies any history of similar pain during this or during her previous . She has not seen her [facility] regarding today's concerns. TRAVEL OUTSIDE OF THE [place] IN LAST 30 DAYS: No - Related Data Allergies/Adverse Reactions: promethazine HCl [From Phenergan] Allergy (Intermediate, Verified 05/27/18 17:29 ) Facial swelling Past Medical History - General Information source: Patient Last Menstrual Period: 02/28/2018 - Social History Smoking Status: Never Smoker Chew tobacco use (# tins/day): No Frequency of alcohol use: None Drug Abuse: None Lives with: Family Family History: CAD, Hyperlipidemia, Hypertension, Malignancy, Other - Mother: [place] Patient has suicidal ideation: No Patient has homicidal ideation: No Renal/ Medical History: Denies: Hx Peritoneal Dialysis Psychiatric Medical History: Reports: Hx Attention Deficit Hyperactivity Disorder, Hx Depression Past Surgical History: Reports: Hx Abdominal Surgery - pyloric stenosis, Hx Section - Immunizations Hx Diphtheria, Pertussis, Tetanus Vaccination: Yes Review of Systems - Review of Systems Notes: Constitutional: Negative for fever. HENT: Negative for sore throat. Eyes: Negative for visual changes. Cardiovascular: Negative for chest pain. Respiratory: Negative for shortness of breath. Gastrointestinal: Positive for right lower abdominal pain Genitourinary: Negative for dysuria. Musculoskeletal: Negative for back pain. Skin: Negative for rash. Neurological: Negative for headaches, weakness or numbness. 10 point ROS negative except as marked above and in HPI. Physical Exam - Vital signs Vitals: Temp Pulse Resp BP Pulse Ox 99.4 F 95 16 119/81 98 05/27/18 16:41 05/27/18 16:41 05/27/18 16:41 05/27/18 16:41 05/27/18 16:41 Interpretation: Normal Notes: PHYSICAL EXAMINATION: GENERAL: Well-appearing, well-nourished and in no acute distress. HEAD: Atraumatic, normocephalic. EYES: Pupils equal round and reactive to light, extraocular movements intact, sclera anicteric, conjunctiva are normal. ENT: nares patent, oropharynx clear without exudates. Moist mucous membranes. NECK: Normal range of motion, supple without lymphadenopathy LUNGS: Breath sounds clear to auscultation bilaterally and equal. No wheezes rales or rhonchi. HEART: Regular rate and rhythm without murmurs ABDOMEN: Soft, nontender, normoactive bowel sounds. No guarding, no rebound. No masses appreciated. EXTREMITIES: Normal range of motion, no pitting or edema. No cyanosis. NEUROLOGICAL: No focal neurological deficits. Moves all extremities spontaneously and on command. PSYCH: Normal mood, normal affect. SKIN: Warm, Dry, normal turgor, no rashes or lesions noted. Course - Re-evaluation Re-evalutation: 05/27/18 20:45 Patient is currently and presenting with lower abdominal pain. No vaginal bleeding or discharge. Ultrasound shows a viable intrauterine , appropriate cardiac activity and active movement. Ovaries unable to visualized. patient denies any dysuria and urinalysis is not consistent with an acute urinary tract infection. The patient does not have any focal right lower quadrant tenderness, rebound or guarding to suggest acute appendicitis. No right upper quadrant tenderness to suggest cholestasis of or an acute cholecystitis. Patient has tolerated oral intake here in the emergency department without difficulty. Vitals are within normal limits. At this time will discharge with return precautions and follow-up recommendations. Verbal discharge instructions given a the bedside and opportunity for questions given. Medication warnings reviewed. Patient is in agreement with this plan and has verbalized understanding of return precautions and the need for primary care follow-up in the next 24-72 hours. 05/27/18 21:03 - Vital Signs Vital signs: Temp Pulse Resp BP Pulse Ox 98.2 F 100 16 122/78 100 05/27/18 21:09 05/27/18 21:09 05/27/18 16:41 05/27/18 21:09 05/27/18 21:09 - Laboratory Result Diagrams: 05/27/18 18:05 05/27/18 18:05 Laboratory results interpreted by me: 05/27/18 05/27/18 05/27/18 18:05 18:05 20:34 MCV 79 L MCH 26.9 L RDW 17.7 H Beta HCG, Quant 14544.00 H Urine Urobilinogen 4.0 H Ur Leukocyte Esterase MODERATE H Discharge - Discharge Clinical Impression: with abdominal pain of right lower quadrant, antepartum Condition: Good Disposition: HOME, SELF-CARE Instructions: Observation for Appendicitis (OM) Additional Instructions: You were seen for abdominal pain during . Your ultrasound and labs are normal today. The exact cause your pain is uncertain but is likely related to your developing baby. Please follow-up with your [facility] [employer] in the next 24-48 hours. Return to the emergency department immediately if you have worsening of your pain, have persistent vomiting, develop a fever of greater than 100.4F, begin to have vaginal bleeding, or any other symptoms that are worrisome to you. Referrals: LUCAS CALABRESE MD [Primary Care Provider] - Follow up as needed
[2018-05-27 20:55] LABS: APPEARANCE,URINE CLOUDY; BILIRUBIN,URINE NEGATIVE (NEGATIVE); GLUCOSE, URINE NEGATIVE (NEGATIVE); KETONES,URINE NEGATIVE (NEGATIVE); LEUKOCYTE ESTERASE,URINE MODERATE (NEGATIVE); NITRITE,URINE NEGATIVE (NEGATIVE); PROTEIN,URINE NEGATIVE (NEGATIVE); URINE SPECIFIC GRAVITY 1.023
[2018-05-27 20:58] LABS: COLOR,URINE YELLOW
[2018-05-27] MEDS ORDERED: LIDOCAINE 5% (700 MG) TRANSDERMAL ADH..PATCH TP ONE (21:03)
[2018-05-27] MEDS ORDERED: ACETAMINOPHEN 325 MG TABLET PO ONE (21:03)
[2018-05-27 21:10] VITALS: BP 122/78
== END 2018-05-27 21:16 | disposition home or self-care (01) ==
LOC: ER 16:35
DX: O26.891 Other specified pregnancy related conditions, first trimester (principal); R10.31 Right lower quadrant pain; Z3A.12 12 weeks gestation of pregnancy; Z88.8 Allergy status to other drugs, medicaments and biological substances
CPT/HCPCS: 36415; 76817; 80053; 81001; 84702; 85025; 93976; 99284

== ENCOUNTER 2018-07-23 16:20 | Outpatient (CLI) | payer OTHER, MEDICAID ==
[2018-07-23 17:06] LABS: APPEARANCE,URINE SLIGHTLY-CLOUDY; BILIRUBIN,URINE NEGATIVE (NEGATIVE); CALCIUM OXALATE CRYSTALS,URINE MANY /HPF; COLOR,URINE YELLOW; GLUCOSE, URINE NEGATIVE (NEGATIVE); KETONES,URINE NEGATIVE (NEGATIVE); LEUKOCYTE ESTERASE,URINE NEGATIVE (NEGATIVE); NITRITE,URINE NEGATIVE (NEGATIVE); PROTEIN,URINE NEGATIVE (NEGATIVE); URINE SPECIFIC GRAVITY 1.026
[2018-07-23 17:21] LABS: URINE AMPHETAMINES SCREEN NEGATIVE; URINE BARBITURATES SCREEN NEGATIVE; URINE BENZODIAZEPINES SCREEN NEGATIVE; URINE COCAINE SCREEN NEGATIVE; URINE MARIJUANA (THC) SCREEN NEGATIVE; URINE METHADONE SCREEN NEGATIVE; URINE PHENCYCLIDINE SCREEN NEGATIVE
[2018-07-23] MEDS ORDERED: RINGERS SOLUTION,LACTATED 1,000 ML IV PRN (17:21)
[2018-07-23] MEDS ORDERED: HYDROXYZINE PAMOATE 50 MG CAPSULE PO ONE (17:21)
[2018-07-23] MEDS ORDERED: HYDROXYZINE PAMOATE 50 MG CAPSULE ONE (17:24)
== END 2018-07-23 18:20 | disposition home or self-care (01) ==
LOC: LC 16:20
PROVIDERS: ATTEND Obstetrics & Gynecology
PROC: 4A1HXCZ Monitoring of Products of Conception, Cardiac Rate, External Approach (ICD-10-PCS; principal; 2018-07-23)
DX: O47.02 False labor before 37 completed weeks of gestation, second trimester (principal); O99.282 Endocrine, nutritional and metabolic diseases complicating pregnancy, second trimester; E86.0 Dehydration; Z3A.20 20 weeks gestation of pregnancy
CPT/HCPCS: 80307; 81001

== ENCOUNTER 2018-08-07 17:47 | Emergency (ER) | payer OTHER, MEDICAID ==
[2018-08-07 17:52] VITALS: BP 111/75
--- NOTE | 2018-08-07 18:45 | ER Document Report ---
ED General - General Chief Complaint: Shortness Of Breath Stated Complaint: SHORTNESS OF BREATH Time Seen by Provider: 08/07/18 18:42 Notes: Patient is a 23-year-old female that is 23 weeks gravid that presents to the emergency department for chief complaint of shortness of breath. Patient states that she was doing laundry earlier, and was getting rather stressed out with 4 other children, and felt lightheaded, and shortness of breath. This has since resolved, she is feeling much better now. She denies having any nausea or vomiting. She states she has had decreased fluid intake which may have contributed to her lightheadedness. She denies having associated chest pain. Denies any symptoms at this time, related to this. She does complain of some mild anterior pubic pain, she states that her current child is measuring 27 weeks, and started feeling pain in that area, she describes it as a dull ache rates it as a 2 out of 10 at this time. Past Medical History: Denies chronic medical conditions Past Surgical History: , hernia repair Social History: Denies tobacco, alcohol or drug use Family History: Reviewed and noncontributory for presenting illness Allergies: Reviewed, see documented allergy list. REVIEW OF SYSTEMS: Unless otherwise stated in this report the patient's positive and negative responses for review of systems for constitutional, eyes, ENT, cardiovascular, respiratory, gastrointestinal, neurological, genitourinary, musculoskeletal, and integumentary systems and related systems to the presenting problem are either as stated in the HPI or were not pertinent or were negative for the symptoms and/or complaints related to the presenting medical problem. PHYSICAL EXAMINATION: Vital signs reviewed, nursing noted reviewed. GENERAL: Well-appearing, well-nourished and in no acute distress. HEAD: Atraumatic, normocephalic. EYES: Eyes appear normal, extraocular movements intact, sclera anicteric, conjunctiva are normal. ENT: nares patent, oropharynx clear without exudates. Moist mucous membranes. NECK: Normal range of motion, supple without lymphadenopathy LUNGS: Breath sounds clear to auscultation bilaterally and equal. No wheezes rales or rhonchi. HEART: Regular rate and rhythm without murmurs ABDOMEN: Soft, gravid, nontender, normoactive bowel sounds. No rebound, guarding, or rigidity. No masses appreciated. EXTREMITIES: Nontender, good range of motion, no pitting or edema. NEUROLOGICAL: No focal neurological deficits. Moves all extremities spontaneously Motor and sensory grossly intact on exam. PSYCH: Normal mood, normal affect. SKIN: Warm, Dry, normal turgor, no rashes or lesions noted on exposed skin TRAVEL OUTSIDE OF THE [place] IN LAST 30 DAYS: No - Related Data Allergies/Adverse Reactions: promethazine HCl [From Phenergan] Allergy (Intermediate, Verified 05/27/18 17:29 ) Facial swelling Past Medical History - Social History Smoking Status: Unknown if Ever Smoked Family History: CAD, Hyperlipidemia, Hypertension, Malignancy, Other - Mother: [place] Patient has suicidal ideation: No Patient has homicidal ideation: No Renal/ Medical History: Denies: Hx Peritoneal Dialysis Psychiatric Medical History: Reports: Hx Attention Deficit Hyperactivity Disorder, Hx Depression Past Surgical History: Reports: Hx Abdominal Surgery - pyloric stenosis, Hx Section - Immunizations Hx Diphtheria, Pertussis, Tetanus Vaccination: Yes Physical Exam - Vital signs Vitals: Temp Pulse Resp BP Pulse Ox 98.9 F 85 16 111/75 97 08/07/18 17:51 08/07/18 17:51 08/07/18 17:51 08/07/18 17:51 08/07/18 17:51 Course - Re-evaluation Re-evalutation: Patient seen and examined vital signs reviewed. Patient was evaluated and treated as appropriate for the patient's presenting symptoms and complaint, with consideration of any critical or life threatening conditions that may be associated with their obtained history and exam as noted above. The patient was re-evaluated and was feeling well, no complaints, at this time I feel the patient can be discharged, she is not having any symptoms, other than some pubic pain, which is likely from her pubic symphysis, with a large measuring child, at 23 weeks, advised her to take Tylenol if needed, and to follow-up with her ASSOCIATE TECHNICIAN, which she was agreeable. Patient symptoms are likely related to her anxiety, which she does take medicines for, she denied having any chest pain, she was not tachycardic, I do not feel that she needs any further workup at this time and she can follow-up with her ASSOCIATE TECHNICIAN which she was agreeable Plan of care was discussed with the patient at this point, after careful consideration I feel that that patient can be discharged from the emergency department, the patient was educated treatments and reasons to return to the emergency department based on their presumed diagnosis as noted above, they were advised to followup with a primary care physician in 2-3 days. Patient was agreeable to plan of care. *Note is created using voice recognition software and may contain spelling, syntax or grammatical errors. - Vital Signs Vital signs: Temp Pulse Resp BP Pulse Ox 98.9 F 85 16 111/75 97 08/07/18 17:51 08/07/18 17:51 08/07/18 17:51 08/07/18 17:51 08/07/18 17:51 Discharge - Discharge Clinical Impression: Dyspnea Qualifiers: Dyspnea type: unspecified Qualified Code(s): R06.00 - Dyspnea, unspecified Condition: Stable Disposition: HOME, SELF-CARE Instructions: Dyspnea, Nonspecific ([facility]) Additional Instructions: Please return to the emergency department if you have any worsening, or concern of your symptoms. Please return to the emergency department if you develop chest pain, difficulty breathing, severe abdominal pain, or ongoing vomiting. Please follow-up with your primary care physician in 2-3 days and any other recommended physicians. If prescribed, take all medications as directed. If you have any questions or concerns do not hesitate to return the emergency department for evaluation. Referrals: KINGSLEY FORREST, [facility] [Primary Care Provider] - Follow up in 3-5 days
== END 2018-08-07 19:00 | disposition home or self-care (01) ==
LOC: ER 17:47
DX: O26.92 Pregnancy related conditions, unspecified, second trimester (principal); R06.02 Shortness of breath; R06.00 Dyspnea, unspecified; Z3A.23 23 weeks gestation of pregnancy
CPT/HCPCS: 99284

== ENCOUNTER → 2018-08-23 | Outpatient (CLI) | payer OTHER, MEDICAID ==
--- NOTE | 2018-08-24 09:19 | RADIOLOGY REPORT (SQ) ---
EXAM DESCRIPTION: KNEE RIGHT 4 VIEWS COMPLETED DATE/TIME: 08/24/2018 9:07 am REASON FOR STUDY: CONTUSION OF RT KNEE S80.01XA CONTUSION OF RIGHT KNEE, INITIAL ENCOUNTER COMPARISON: None. NUMBER OF VIEWS: Four views. TECHNIQUE: AP, lateral, and both oblique radiographic images acquired of the right knee. LIMITATIONS: None. FINDINGS: MINERALIZATION: Normal. BONES: No acute fracture or dislocation. No worrisome bone lesions. JOINT: No effusion. SOFT TISSUES: No soft tissue swelling. No radio-opaque foreign body. OTHER: No other significant finding. IMPRESSION: 1. NEGATIVE STUDY OF THE RIGHT KNEE. TECHNICAL DOCUMENTATION: JOB ID: [id number] [employer]- All Rights Reserved Reading location - IP/workstation name: [email or web address]
== END ==
LOC: OD 15:16
PROVIDERS: ATTEND Nurse Practitioner Acute Care
DX: S80.01XA Contusion of right knee, initial encounter (principal); X58.XXXA Exposure to other specified factors, initial encounter